=== PATIENT | male | born 1965 | race Caucasian/White ===

== ENCOUNTER 2022-05-21 08:05 | Outpatient (CLI) | payer OTHER, SELFPAY ==
[2022-05-21 15:15] LABS: Chloride* 100 mmol/L (96-114); Potassium* 4.7 mmol/L (3.6-5.1); Sodium* 139 mmol/L (135-149)
[2022-05-21 15:17] LABS: Creatinine* 1.1 mg/dL (0.5-1.5); Estimated Glomerular Filt Rate 79 ml/min
[2022-05-21 15:18] LABS: Blood Urea Nitrogen* 17 mg/dL (7-30); Calcium* 10.3 mg/dL (8.4-10.6); Carbon Dioxide* 31 mmol/L (20-32); Glucose* 95 mg/dL (60-115)
== END 2022-05-21 08:06 | disposition home or self-care (01) ==
LOC: LKVREF 08:06
PROVIDERS: PCP Family Medicine; Visit Provider Family Medicine
DX: I10 Essential (primary) hypertension (principal); Z01.818 Encounter for other preprocedural examination
CPT/HCPCS: 80048

== ENCOUNTER 2022-06-04 10:16 | Outpatient (CLI) | payer OTHER, SELFPAY ==
--- NOTE | 2022-06-04 11:36 | W.ANESCHARGE ---
Anesthesia Charges Start Date/Time Anesthesia Start Date: 06/04/22 Anesthesia Start Time: 11:03 Stop Date/Time Anesthesia Stop Date: 06/04/22 Anesthesia Stop Time: 11:32 Summary Emergency: No
--- NOTE | 2022-06-04 11:47 | W.ANESCHARGE ---
Anesthesia Charges Start Date/Time Anesthesia Start Date: 06/04/22 Anesthesia Start Time: 11:03 Stop Date/Time Anesthesia Stop Date: 06/04/22 Anesthesia Stop Time: 11:32 Summary Emergency: No
== END 2022-06-04 10:17 | disposition home or self-care (01) ==
LOC: OP CLINIC 10:17
PROVIDERS: PCP Family Medicine; Visit Provider Surgery
DX: Z12.11 Encounter for screening for malignant neoplasm of colon (principal); Z86.010 Personal history of colon polyps
CPT/HCPCS: 00811; 00812; 45378; J2704

== ENCOUNTER 2023-05-16 13:00 | Outpatient (RCR) | payer OTHER, SELFPAY | END 2023-07-30 14:09 | disposition home or self-care (01) | PROVIDERS: PCP Family Medicine; Visit Provider Family Medicine | DX: M79.2 Neuralgia and neuritis, unspecified (principal); Z51.89 Encounter for other specified aftercare | CPT/HCPCS: 80048; 80061; 84153; 97012; 97110; 97140; 97162; 97530 ==

== ENCOUNTER 2023-11-08 08:02 | Outpatient (CLI) | payer OTHER, SELFPAY ==
--- OUTSIDE RECORDS SUMMARY | 2023-11-08 08:05 | XMS_ITS | Patient Health Record ---
Author Name Unknown Organization [facility] Address [address] [place] [address] Care Team Providers Care Knifeman Name Role Phone PCP, Does Not Have a Primary Care Provider Unava ilable ALLERGIES No Known Allergies REASON FOR REFERRAL No Information MEDICATIONS Medication SIG (Take, Route, Frequency, Duration) Notes Start Date End Date Status Atorvastatin Calcium Active Losartan Potassium-HCTZ Active Albuterol Sulfate HFA 108 (90 Base) MCG/ACT 1-2 puffs as needed for shortness of breath and/or wheezing Inhalation every 4-6 hrs for 7 days 09/18/2022 Active oxyCODONE-Acetaminophen Active SOCIAL HISTORY Sex Assigned At : Social History Observation Description Sex Assigned At Unknown PLAN OF TREATMENT No Information Insurance Providers Payer Name Payer Address Payer Phone Subscriber Number Group Number Insured Name Patient Relationship to Insured Coverage Start Date Coverage End Date [employer] [address] [place] [address] [id number] DORIS SCHULTZ Self - patient is the insured MEDICAL (GENERAL) HISTORY Medical History History ICD Code hyperlipidemia HTN
--- OUTSIDE RECORDS SUMMARY | 2023-11-08 08:05 | XMS_ITS | Continuity of Care Document ---
Author Name Unknown Organization [facility] Address [address] [place] [address] Phone Care Team Providers Care Sap Basis Architect Name Role Phone Jose Neely MD Unavailable Unavailable Allergies, Adverse Reactions, Alerts Substance Reaction Status Criticality sumatriptan Active No Information methocarbamol Active No Information gabapentin Active No Information tramadol Active No Information Medications Medication Instructions Dosage Effective Dates (start - stop) Status Comments LOSARTAN-HYDROCHLOROTHI AZIDE (unknown strength) Not Available - Active PERCOCET (unknown strength) Not Available - Active ATORVASTATIN CALCIUM (unknown strength) Not Available - Active VITAMIN D3 (unknown strength) Not Available - Active Procedures Procedure Date Office/Outpatient Visit,New, Mod 2022 Physician Telephone Evaluation 5-10 Min Physician Telephone Evaluation 5-10 Min Office/Outpatient Visit,Est, Low 2017 Postop Followup Visit Pa Assist Lumbar Spine Fusion, Posterola teral Remove Lumbar Spine Lamina, 1 Seg Pa Assist Insert Spine Fixation, Posteri or Lumbar Spine Fusion, Posterolateral Remove Lumbar Spine Lamina, 1 Seg Insert Spine Fixation, Posterior 2017 Office/Outpatient Visit,Est, Mod 2017 Office/Outpatient Visit,Est, Mod 2017 Office/Outpatient Visit,Est, Mod 2017 Office/Outpatient Visit,New, Mod 2016 Advance Directives Directive Yes / No Effective Date File Name No Information Encounters Encounter Description Practice Location Reason(s) For Visit Diagnoses Date Provider Providers Copied on Encounter [facility], [address], [place], [place], [id number], [place] tel:[phone] [facility] [place] No Information [address] [facility], [address] [place] [address], [address], [facility] [place], [id number] , [place]. tel:[phone] Office/Outpat ient Visit,New, Mod [facility], [address], [place], [place], [id number], [place] tel:[phone] [facility] [place] Spinal stenosis, cervical region Sep- [address] Mari[address]ña[address] [facility], [address], [place], [address], [place]. [phone] Referring Provider: Asif Browne, [facility] [address] [place], [address]. tel:[phone] Physician Telephone Evaluation 5-10 Min [facility], [address], [place], [id number], [place] tel:[phone] [facility] - [place] No Information [address]ña[address] [facility] [place], [address], [place], [address], [place]. [phone] Referring Provider: Asif Browne, [facility] [address] [place], [address]. tel:[phone] Physician Telephone Evaluation 5-10 Min [facility], [address], [place], [place], [id number], [place] tel:[phone] [facility] - [facility] No Information [address] Peña[address] [facility] [place], [address], [place], [address], [place]. tel:[phone] Referring Provider: Asif Browne, [facility] [address] [place], [address]. tel:[phone] Office/Outpat ient Visit,Est, Low [facility], [address], [place], [id number], [place] tel:[phone] [facility] [place] Arthrodesis status [address] [facility] [place], [address], [facility] [place], [address], [place]. tel: [phone] Referring Provider: Asif Browne, [facility] [address] [place], [address]. tel:[phone] [facility], [address], [place], [place], [id number], [place] tel:[phone] [facility] Arthrodesis status [address] Peña[address] [facility] [place], [address] [place] [address] [address], [facility] [place], [address], [place]. tel: [phone] Referring Provider: Asif Browne, [facility] [address] [place], [address]. tel:[phone] [facility], [address], [place], [id number], [place] tel:[phone] [facility] Arthrodesis status [address] [facility] [place], [address] [place] [address], [address], [facility] [place], [id number] , [place]. tel: [phone] [facility], [address], [place], [id number], [place] tel:[phone] [facility] No Information [address] [facility] [place], [address], [facility] [place], [id number] , [place]. tel:[phone] Referring Provider: Asif Browne, [facility] [address] [place], [address]. tel:[phone] [facility], [address], [place], [id number], [place] tel:[phone] [facility] No Information [address]ña[address] [facility], [address], [place], [address], [place]. tel:[phone] Referring Provider: Asif Browne, [facility] [address] [place], [address]. tel:[phone] Office/Outpat ient Visit,Est, Mod [facility], [address], [place], [id number], [place] tel:[phone] [facility] Spondylolisthe sis, lumbar region Feb-2 7-201 8 Mariama Peña. [facility], [address], [place], [address], [place]. tel:[phone] Referring Provider: Asif Browne, [facility] [address] [place], [address]. tel:[phone] Office/Outpat ient Visit,Est, Mod [facility], [address], [place], [id number], [place] tel:[phone] [facility] Spinal stenosis of lumbosacral regionSpondylo listhesis, lumbar region Oct- 0 8 Tommy Lowery. [facility], [address], [facility], [id number] , [place]. tel:[phone] Referring Provider: Asif Browne, [facility] [address] [place], [address]. tel:[phone] Office/Outpat ient Visit,Est, Mod [facility], [address], [place], [address], [place] tel:[phone] [facility] Spondylolisthe sis, lumbar regionSpinal stenosis of lumbosacral region 8 Tommy Lowery. [facility], [address], [facility] [place], [id number] , [place]. tel:[phone] Referring Provider: Asif Browne, [facility] [address] [place], [address]. tel:[phone] Office/Outpat ient Visit,New, Mod [facility], [address], [place], [id number], [place] tel:[phone] [facility] [place] Spondylolisthe sis, lumbar regionSpinal stenosis, lumbar region [address] [facility], [address], [place], [address] , [place]. tel:[phone] Referring Provider: Asif Browne, [address], [address]. tel:[phone] Family History Family Member Type Diagnosis Age At Onset No Information Payers Payer name Insurance type Covered green party ID Shoaib dominguez(sailaja Isbell CI [id number] Social History Type Description Quantity Date Captured Comments Sex Male Smoking Status No Information Chief Complaint And Reason For Visit No Information Reason For Referral Reason For Referral No Information History Of Present Illness Encounter Date Complaint History Of Prese nt Illness No Information Functional Status Date Functional Assessmen t No Information Instructions Date Instruction Additional Infor heath Weight management: I nstructed to return to General Practitioner timeframe: 1 Month. Related to Overweight Weight Management Education Rela shira to Overweight Assessments Type Assessment Date No Information Patient Care Teams Name Effective Dates (start - stop) Status Members No Information
--- OUTSIDE RECORDS SUMMARY | 2023-11-08 08:05 | XMS_ITS | Clinical Summary ---
Author Name Unknown Organization [facility] Address [place], [place] [address] Care Team Providers Care Plate Driller Name Role Phone Asif Andersen MD Primary Care Provider [phone] Allergies Active Allergy Reactions Criticality Noted Date Comments Gabapentin Hives 03/19/2023 Hives and hand swelling. Sumatriptan Rash Medium 02/24/2018 Skin sensitivity Tramadol Vomiting High 02/24/2018 Severe vomiting Medications Medication Sig Dispensed Refills Start Date End Date Status atorvastatin (LIPITOR) 10 mg tablet Take 10 mg by mouth once every other day. 0 Active cholecalciferol (VITAMIN D3) 2,000 unit capsule Take 2,000 Units by mouth once daily. 0 Active oxyCODONE (ROXICODONE) 5 mg immediate release tabletIndications:S/P lumbar fusion Take 1-2 tablets by mouth every 4 hours if needed for Pain. 70 tablet 0 02/26/2018 Active losartan-hydrochlorot hiazide (HYZAAR) 100-25 mg tablet Take 1 Tablet by mouth once daily. 0 12/26/2022 Active Active Problems Problem Noted Date Diagnosed Date DDD (degenerative disc disease), cervical 2022 Overview: March 2023: Rayus C6-7 [place] epidural steroid injection without lidocaine injected. Spondylolisthesis of lumbar region 02/25/2018 Spinal stenosis of lumbar re gion without neurogenic claudication 02/25/2018 Hypertension 02/25/2018 Hypercholesteremia 02/25/2018 Immunizations Name Administration Dates Next Due Influenza, IIV3 (Age >=3 years) 06/30/2021 Influenza, IIV4 07/14/2018,06/13/2017 Influenza, IIV4 (=>6mos) MDV 07/18/2019 Influenza,CCIIV4 PRESERV FREE 06/13/2022, 020 Social History Tobacco Use Types Packs/Day Years Used Date Smoking Tobacco: Never Smokeless Tobacco: Never Alcohol Use Standard Drinks/Week Comments Yes 0 (1 standard drink = 0.6 oz pur e alcohol) 4 per month Social Connections Answer Date Recorded Frequency of Communication with Friends and Fami ly Not on file 03/19/2023 Sex and Gender Information Value Date Recorded Sex Assigned at Not on file Gender Identity Not on file Sexual Orientation Not on file Obstetrics History Last Filed Vital Signs Vital Sign Reading Time Taken Comments Blood Pressure 135/84 04/30/2023 12:55 PM CDT Pulse 74 04/30/2023 12:55 PM CDT Temperature 36.3 ??C (97.3 ??F) 02/27/2018 7:40 AM CD T Respiratory Rate 18 02/27/2018 7:40 AM CDT Oxygen Saturation 96% 04/30/2023 12:55 PM CDT Inhaled Oxygen Concentration - - Weight 99.1 kg (218 lb 6.4 oz) 04/30/2023 12:55 PM CDT Height 182.9 cm (6') 02/25/2018 8:47 AM CDT Body Mass Index 29.62 02/25/2018 8:47 AM CDT Plan of Treatment Health Maintenance Due Date Last Done Comments Tdap 1978 Depression screening for age 12+ 1979 HIV for age 15-65 1982 BMI (ht and wt on same day) for age 18+ 1985 Hepatitis C screening for age 18-79 1985 Tetanus booster 1987 Colonoscopy through age 75 01/15/2012 Lipids for age 45-75 01/15/2012 Zoster (shingles) series for age 50+ (1 of 2) 2017 COVID-19 vaccine series ( season) 2023 01/04/2022, 08/25/2021, 12/31/2020, Additional history exists Influenza for age 50-64 05/24/2023 06/13/20 22, 06/30/2021, 06/13/2020, Additional history exists Pneumococcal series for age 6-64 Aged Out No longer eligible based on patient's age to complete this topic Medical Devices Implanted Type Area Aircraft Maintenance Manager Device Identifier Shelf Expiration Date Model / Serial / Lot Bone 30cc Allosource Chips Canclls - [id number] Implanted:Qty : 1 on 02/25/2018 by Casey Leslie MD at [facility] Bone Implants Lumbar Vertebrae Allosource 04/19/2022 [id number] # / / [id number] Set Screw Lmbr Ant 5.5mm Solera Break Off - [id number] Implanted:Qty : 4 on 02/25/2018 by Casey Leslie MD at [facility] Lumbar Vertebrae Medtronic [facility] [id number]# / / Screw Lmbr Post 6.5x45mm Solera 5.5/6 Va Cocr - [id number] Implanted:Qty : 2 on 02/25/2018 by Casey Leslie MD at [facility] Lumbar Vertebrae Medtronic Spine/Ortho [id number] 545# / / Screw Lmbr Post 6.5x50mm Solera 5.5/6 Va Cocr - [id number] Implanted:Qty : 2 on 02/25/2018 by Casey Leslie MD at [facility] Lumbar Vertebrae Medtronic Spine/Ortho [id number] 550# / / Gentry Lmbr 40x5.5mm Solera 5.5/6cvd Co Cr - [id number] Implanted:Qty : 2 on 02/25/2018 by Casey Leslie MD at [facility] Lumbar Vertebrae Medtronic Spine/Ortho [id number] 40# / / Bone 15cc Allosource Crushed Canclls - [id number] Implanted:Qty : 1 on 02/25/2018 by Casey Leslie MD at [facility] Lumbar Vertebrae Allosource 10/08/2022 [id number] # / / [id number] Advance Directives Latest Code Status on File Code Status Date Activated Date Inactivated Comments Full Code 02/25/2018 3:49 PM 02/27/2018 11:57 AM Care Teams Plate Driller Relationship Specialty Start Date End Date Asif Andersen MD [address] [place] [address] PCP - General Family Practice 10/03/17
--- NOTE | 2023-11-08 08:15 | MR_ITS ---
[address] [address] Phone:[phone] Fax:[phone] Referring Physician Information: Ling Cook C.N.P. [address] [address] Phone:[phone] Fax:[phone] Patient:?Jose De Jesus Reynoso D.O.B:?1965 Sex:?Male Phone:?[phone] [facility] MRN:?[id number] Exam Date:?11/08/2023 EXAM: MR LUMBAR SPINE WITHOUT CONTRAST CLINICAL INFORMATION: Back pain with history of prior lumbar surgery. COMPARISON: MRI dated 04/25/2020. TECHNICAL INFORMATION: Multiplanar multisequence imaging in the lumbar spine. Contrast:?None. Sedation:?None. INTERPRETATION: Osseous structures/Alignment: Normal lumbar lordotic alignment. Modic type II endplate changes at L5-S1. Instrumented fusion at L4-5 with grade 1 spondylolisthesis. No osseous destructive lesion or fracture. Facet/SI joints: Mild facet hypertrophy/degenerative changes bilaterally at L3-4 and moderate on the left at L5-S1. Upper SI joints are unremarkable. Cord/conus: Normal signal intensity distal cord/conus medullaris. Normal conus termination. Extra-spinal findings: No abnormalities identified. L5-S1: Severe disc generation with bulge/osteophyte, mild left foraminal stenosis and no focal neural impingement. Patent central canal. L4-5: Posterior lateral instrumented fusion/decompression with patent central canal and foramina. L3-4: Moderate disc generation, 3 mm retrolisthesis with bulge asymmetric to the left with [id number] left and mild right subarticular recess stenosis, left L4 nerve encroachment. Overall mild central canal stenosis and mild left foraminal stenosis. L2-3: Normal disc height. No disc herniation, stenosis or focal neural impingement. L1-2: Mild disc generation, dorsal bulge with mild dural sac effacement and no stenosis or neural impingement. No lower thoracic disc herniation or neural impingement. CONCLUSION: 1. Mild central and moderate left greater than right L3-4 subarticular recess stenosis with left L4 nerve encroachment. 2. Severe L5-S1 disc degeneration with mild left foraminal stenosis. 3. Stable postoperative changes L4-5 with no recurrent stenosis or neural impingement. 4. No significant interval changes as compared with prior study. Electronically signed on 11/11/2023 8:42:00 AM by Sukumar Shaw M.D.
== END 2023-11-08 08:03 | disposition home or self-care (01) ==
LOC: MRI 08:03
PROVIDERS: PCP Family Medicine; Visit Provider Nurse Practitioner Family
DX: M96.1 Postlaminectomy syndrome, not elsewhere classified (principal); M51.37 Other intervertebral disc degeneration, lumbosacral region; M48.07 Spinal stenosis, lumbosacral region; M54.9 Dorsalgia, unspecified
CPT/HCPCS: 72148

== ENCOUNTER 2024-03-23 14:17 | Emergency (ER) | payer OTHER, SELFPAY ==
[2024-03-23] VITALS (27 sets, daily range): BP systolic 101–142; BP diastolic 63–96; PULSE 57–73; RESP 18; TEMP 36.1; O2SAT 92–100; BMI 29.6
--- NOTE | 2024-03-23 14:50 | ED.SYNCOPE ---
HPI - Syncope General Chief Complaint: Syncope/Fainted Stated Complaint: Syncopal Time Seen by Provider: 03/23/24 14:39 History of Present Illness HPI narrative: This 59-year-old male comes in for evaluation of his syncopal event that occurred prior to arrival. He was sitting at a restaurant when he began to feel lightheaded and after about 10 seconds or so he did have loss of consciousness. He leaned forward with his head down. Ambulance was contacted and he was still recovering at that time. His systolic blood pressure was measured at around 77 at that time. Upon arrival here he is feeling better except for being tired. His systolic blood pressure here is 124. The patient is on antihypertensive medicines but there is no new medicine or change of this medicine. He did not have any chest pain or shortness of breath. He did not notice any palpitations. He is currently finishing treatment for shingles. He denies having any fevers or other symptoms of infection. His significant other noted that he was very pale at the time of these events but now has good normal skin color. Related Data Home Medications ?Medication ?Instructions ?Recorded ?Confirmed cholecalciferol (vitamin D3) 50 50 mcg PO DAILY 05/21/22 03/17/24 mcg (2,000 unit) tablet oxycodone-acetaminophen 5 mg-325 tab PO Q8H PRN 05/21/22 03/17/24 mg tablet ondansetron 4 mg disintegrating mg PO 03/17/24 03/17/24 tablet Previous Rx's ?Medication ?Instructions ?Recorded atorvastatin 10 mg tablet 10 mg PO .Bedtime #90 tabs 05/03/23 losartan 100 1 tab PO DAILY #90 tabs 05/03/23 mg-hydrochlorothiazide 25 mg tablet cyclobenzaprine 10 mg tablet 10 mg PO TID PRN muscle spasm #90 02/20/24 tabs methylprednisolone 4 mg tablets in See Rx Instructions PO PER PKG DIR 03/17/24 a dose pack (Medrol (Robe)) #21 ea valacyclovir 1 gram tablet 1,000 mg PO Q8H 7 days #21 tabs 03/17/24 (Valtrex) Allergies Allergy/AdvReac Type Severity Reaction Status Date / Time gabapentin Allergy Severe Hives Verified 03/17/24 11:36 sumatriptan Allergy Severe Skin Verified 03/17/24 11:36 sensitivity tramadol Allergy Severe Emesis Verified 03/17/24 11:36 methocarbamol AdvReac Severe Migraine Verified 03/17/24 11:36 Review of Systems Status of ROS: Reports: 10 or more systems reviewed and unremarkable except as noted in History and below Narrative: Constitutional: No fevers, no weight gain or loss. Eyes: No discharge. No vision changes. HENT: No congestion, no sore throat, no ear pain. Cardiovascular: No chest pain, no palpitations. Respiratory: No shortness of breath, no wheezes, no cough. Gastrointestinal: No abdominal pain, no vomiting, no diarrhea. Genitourinary: No dysuria, no hematuria. Musculoskeletal: Normal range of motion. Skin: No rashes, no pruritis. Neurological: No weakness, sensory change, speech change. Syncopal event as described above. Endo/Heme/Allergies: No bruising or bleeding. No polydipsia. Pysch: no suicidality, no anxiety, no insomnia. All other systems reviewed and are negative. [facility] Medical History (Updated 03/23/24 @ 15:47 by Amadou Coy MD) Hyperlipidemia ?E78.5 - Hyperlipidemia, unspecified (ICD-10) Hypertension ?I10 - Essential (primary) hypertension (ICD-10) Prediabetes ?R73.03 - Prediabetes (ICD-10) Pain of right upper extremity ?M79.601 - Pain in right arm (ICD-10) Pain of left upper extremity ?M79.602 - Pain in left arm (ICD-10) Left knee pain ?M25.562 - Pain in left knee (ICD-10) Encounter for preoperative screening laboratory testing for severe acute respiratory syndrome coronavirus 2 (SARS-CoV-2) ?Z01.812 - Encounter for preprocedural laboratory examination (ICD-10) ?Z20.822 - Contact with and (suspected) exposure to covid-19 (ICD-10) Encounter for pre-operative examination ?Z01.818 - Encounter for other preprocedural examination (ICD-10) Surgical History (Updated 03/03/24 @ 09:43 by Agueda Coats MD) H/O neck surgery ?Z98.890 - Other specified postprocedural states (ICD-10) S/P laparoscopic cholecystectomy ?Z90.49 - Acquired absence of other specified parts of digestive tract (ICD-10) S/P knee surgery ?Z98.890 - Other specified postprocedural states (ICD-10) History of spinal fusion ?Z98.1 - Arthrodesis status (ICD-10) History of colonoscopy ?Z98.890 - Other specified postprocedural states (ICD-10) Social History (Updated 03/03/24 @ 09:44 by Agueda Coats MD) Narrative: Non-smoker, works as a general lithographic worker. Minimal alcohol use. Smoking Status: Never smoker Do you use any of these nicotine containing products: None How often do you have a drink containing alcohol: never How often do you have six or more drinks on one occasion: Never AUDIT-C Alcohol total score: 0 Non-prescribed substance use: denies use Little interest or pleasure in doing things: not at all Feeling down, depressed, or hopeless: not at all Exam Narrative: Exam Narrative: Constitutional: Well-developed, well-nourished, no acute distress. HEENT: Normocephalic, atraumatic. Neck: Normal range of motion. Nontender. Supple. Heart: Regular. No murmurs. Normal rate. Intact distal pulses. Lungs: Clear to auscultation. No chest discomfort. No wheezes, rhonchi, or rales. Abdomen: Normal bowel sounds. Nontender. No rebound tenderness. Genitalia: Deferred. Back: No midline tenderness. Normal range of motion. Extremities: Normal range of motion. No injury. Skin: Intact. No rash. Warm. No erythema or pallor. Neurologic: No altered sensation. No weakness. Alert and oriented. No facial asymmetry. Tongue is midline. Nvngen-gq-dnfw is normal. No pronator drift. Air Route Traffic Controller strength is equal bilaterally. Able to raise each leg from the bed. Psychiatric: No suicidality. No anxiety or depression. No insomnia. Nursing notes and vitals signs are reviewed. Const: Vital Signs, click to edit/add: Vital Signs - 24 hr 03/23/24 14:29 Temperature 97 F L Pulse Rate [Left P ulse Oximeter] 57 L Respiratory Rate 18 Blood Pressure [Le ft Upper Arm] 124/77 Pulse Oximetry 100 Oxygen Delivery Me thod Room Air Course Vital Signs Vital signs: Initial Vital Signs Temperature 97 F L 03/23/24 14:29 Temperature Source Temporal Artery Scan 03/23/24 14:29 Pulse Rate 57 L 03/23/24 14:29 Pulse Rhythm Regular 03/23/24 14:29 Pulse Strength 3+ Normal 03/23/24 14:29 Respiratory Rate 18 03/23/24 14:29 Blood Pressure 124/77 03/23/24 14:29 Blood Pressure Mean 92 03/23/24 14:29 Blood Pressure Position High-Fowlers 03/23/24 14:29 Pulse Oximetry 100 03/23/24 14:29 Oxygen Delivery Method Room Air 03/23/24 14:29 Vital Signs Temperature 97 F L 03/23/24 14:29 Pulse Rate 57 L 03/23/24 14:29 Respiratory Rate 18 03/23/24 14:29 Blood Pressure 124/77 03/23/24 14:29 Pulse Oximetry 100 03/23/24 14:29 Oxygen Delivery Method Room Air 03/23/24 14:29 Temperature 97 F L 03/23/24 14:29 Pulse Rate 57 L 03/23/24 14:29 Respiratory Rate 18 03/23/24 14:29 Blood Pressure 124/77 03/23/24 14:29 Pulse Oximetry 100 03/23/24 14:29 Oxygen Delivery Method Room Air 03/23/24 14:29 MDM - Syncope MDM Narrative Medical decision making narrative: This patient comes in reporting a syncopal event as described above. He arrives here with normal vital signs and has normal neurologic exam. EKG shows normal sinus rhythm and labs are acquired. These are in the process of being resulted. His hemoglobin, platelets, and white blood cell count are in normal range. His troponin also returns negative. He reports another episode where he felt lightheaded while in the room here. He is complaining of a headache in the left side of his forehead. He states that he does not normally get headaches there. More typically he has migraine-type headaches that affect the right side of his head. I did choose then to order CT imaging of his head and CT angiogram of head and neck. Results for these studies are pending at the end of my shift at which time care is transferred to Dr. Mcmanus. Lab Data Labs: Lab Results 03/23/24 03/23/24 Range/Units 14:50 15:14 WBC 10.80 (4.50-11.00) K/uL RBC 5.17 (4.30-5.90) m/uL Hgb 15.6 (13.5-17.5) gm/dL Hct 46.2 (37.0-53.0) % MCV 89 (80-100) fL MCH 30 (26-34) pg MCHC 34 (32-36) gm/dL RDW Coeff of Mehnaz 12.2 (11.5-15.5) % Plt Count 262 (140-440) K/uL Neut % (Auto) 70.2 (42.0-72.0) % Lymph % (Auto) 20.1 (20-44) % [place] % (Auto) 8.2 (0.0-11.0) % Eos % (Auto) 0.7 (0.0-7.0) % Baso % (Auto) 0.2 (0.0-3.0) % Neut # (Auto) 7.58 H (1.7-7.0) K/uL Lymph # (Auto) 2.17 (0.90-2.90) K/uL [place] # (Auto) 0.90 (0.00-0.90) K/UL Eos # (Auto) 0.08 (0.00-0.50) K/uL Baso # (Auto) 0.02 (0.00-0.30) K/uL Abs Immat Gran (auto) 0.06 (0.00-0.30) K/uL Imm/Tot Granulo (auto) 0.6 % POC Troponin I 0.00 L (0.01-0.04) ng/ml ECG Data Attestation: I personally reviewed and interpreted this ECG as follows: Interpretation: Normal sinus rhythm. Rate is 58 beats per minute. There are no ST or T-wave abnormalities. Discharge Plan Discharge Clinical Impression: Syncope Prescriptions: No Action cholecalciferol (vitamin D3) 50 mcg (2,000 unit) tablet 50 mcg PO DAILY oxycodone-acetaminophen 5-325 mg tablet PO Q8H PRN losartan-hydrochlorothiazide 100-25 mg tablet 1 tab PO DAILY Qty: 90 3RF atorvastatin 10 mg tablet 10 mg PO .Bedtime Qty: 90 3RF cyclobenzaprine 10 mg tablet 10 mg PO TID PRN (Reason: muscle spasm) Qty: 90 0RF ondansetron 4 mg tablet,disintegrating PO valacyclovir [Valtrex] 1 gram tablet 1,000 mg PO Q8H 7 Days Qty: 21 0RF methylprednisolone [Medrol (Robe)] 4 mg tablets,dose pack See Rx Instructions PO PER PKG DIR Qty: 21 0RF Rx Instructions: PO PER PKG DIR Follow Up/Referrals: Asif Andersen MD [Primary Care Provider] -
--- OUTSIDE RECORDS SUMMARY | 2024-03-23 15:04 | XMS_ITS | Continuity of Care Document ---
Author Organization [facility] Address [address] [place] [address] Phone Care Team Providers Care Tin Pourer Name Role Phone Jose Neely MD Unavailable [...] C, [address], [place], [place], [id number], [place] tel:[phone] [facility] No Information May- 3 Florinda Jose. [facility], [address] [place] [address], [address], [place], [place], [id number] , [place]. [phone] Office/Outpat ient Visit,New, Mod [facility], [address], [place], [place], [id number], [place] tel:[phone] [facility] Spinal stenosis, cervical region Sep- 3 Mariama Peña. [facility], [address] [place] [address] [address], [place], [address], [place]. [phone] Referring Provider: Asif Browne, [facility] [address] [place], [address]. tel:[phone] Physician Telephone Evaluation 5-10 Min [facility], [address], [place], [place], [id number], [place] tel:[phone] [facility] No Information 0 Mariama Peña. [facility], [address], [place], [address], [place]. tel:[phone] Referring Provider: Asif Browne, [facility] [address] [place], [address]. tel:[phone] Physician Telephone Evaluation 5-10 Min [facility], [address], [place], [place], [address], [place] tel:[phone] [facility] No Information 0 Mariama Peña. [facility], [address], [place], [address], [place]. tel:[phone] Referring Provider: Asif Browne, [facility] [address] [place], [address]. tel:[phone] Office/Outpat ient Visit,Est, Low [facility], [address], [place], [place], [id number], [place] tel:[phone] [facility] Arthrodesis status 8 Mariama Peña. [facility], [address], [place], [address], [place]. tel:[phone] Referring Provider: Asif Browne, [facility] [address] [place], [address]. tel:[phone] [facility], [address], [place], [id number], [place] tel:[phone] [facility] Arthrodesis status Mariama Peña. [facility], [address] [place] [address] [address], [place], [address], [place]. tel: [phone] Referring Provider: Asif Browne, [facility] [address] [place], [address]. tel:[phone] [facility], [address], [place], [address], [place] tel:[phone] [facility] Arthrodesis status 8 Gilmar Walker. [facility], [address] [place] [address], [address], [place], [place], [id number] , [place]. tel:[phone] [facility], [address], [place], [id number], [place] tel:[phone] [facility] No Information 8 Tommy Lowery. [facility], [address] [facility] [address], [place], [place], [address] , [place]. tel:[phone] Referring Provider: Asif Browne, [facility] [address] [place], [address]. tel:[phone] [facility], [address], [place], [place], [id number], [place] tel:[phone] [facility] No Information 8 Mariama Peña. [facility], [address], [place], [address], [place]. tel:[phone] Referring Provider: Asif Browne, [facility] [address] [place], [address]. tel:[phone] Office/Outpat ient Visit,Est, Mod [facility], [address], [place], [place], [address], [place] tel:[phone] [facility] Spondylolisthe sis, lumbar region Feb-2 7-201 8 Mariama Peña. [facility], [address], [place], [address], [place]. tel:[phone] Referring Provider: Asif Browne, [facility] [address] [place], [address]. tel:[phone] Office/Outpat ient Visit,Est, Mod [facility], [address], [place], [id number], [place] tel:[phone] [facility] Spinal stenosis of lumbosacral regionSpondylo listhesis, lumbar region Oct- 0201 8 Tommy Lowery. [facility], [address], [place], [place], [address] , [place]. tel:[phone] Referring Provider: Asif Browne, [facility] [address] [place], [address]. tel:[phone] Office/Outpat ient Visit,Est, Mod [facility], [address], [place], [id number], [place] tel:[phone] [facility] Spondylolisthe sis, lumbar regionSpinal stenosis of lumbosacral region 5201 8 Tommy Lowery. [facility], [address], [place], [place], [address] , [place]. tel:[phone] Referring Provider: Asif Browne, [facility] [address] [place], [address]. tel:[phone] Office/Outpat ient Visit,New, Mod [facility], [address], [place], [place], [address], [place] tel:[phone] [facility] Spondylolisthe sis, lumbar regionSpinal stenosis, lumbar region 7 Sanders Sebastián. [facility], [address], [place], [place], [address] , [place]. tel:[phone] Referring Provider: Asif Browne, [address], [address]. tel:[phone] Family History Family Member Type Diagnosis Age At Onset No Information Payers Payer name Insurance type Covered constitution party ID Shoaib dominguez(sailaja Isbell CI [id number] Social History Type Description Quantity Date Captured [...]
--- OUTSIDE RECORDS SUMMARY | 2024-03-23 15:04 | XMS_ITS | Clinical Summary ---
Author Organization [facility] Address [place], [place] [address] Care Team Providers Care Measurement And Sensing Technician Name Role Phone Asif Andersen MD Primary Care Provider [phone] Allergies Active Allergy Reactions Criticality Noted Date Comments Gabapentin Hives 03/19/2023 Hives and hand swelling. Sumatriptan Rash Medium 02/24/2018 Skin sensitivity Tramadol Vomiting High 02/24/2018 Severe vomiting Medications Medication Sig Dispensed Refills Start Date End Date Status atorvastatin (LIPITOR) 10 mg tablet Take 10 mg by mouth once every other day. Active cholecalciferol (VITAMIN D3) 2,000 unit capsule Take 2,000 Units by mouth once daily. Active oxyCODONE (ROXICODONE) 5 mg immediate release tabletIndications:S/P lumbar fusion Take 1-2 tablets by mouth every 4 hours if needed for Pain. 70 tablet 02/26/2018 Active losartan-hydrochlorot hiazide (HYZAAR) 100-25 mg tablet Take 1 Tablet by mouth once daily. 12/26/2022 Active Active Problems Problem Noted Date [...] (1 of 2) 2017 COVID-19 vaccine series (2022- season) 2023 01/04/2022, 08/25/2021, 12/31/2020, Additional history exists Influenza for age 50-64 05/24/2024 06/13/20 22, 06/30/2021, 06/13/2020, Additional history exists Pneumococcal series for age 6-64 Aged Out No longer eligible based on patient's age to complete this topic Medical Devices Implanted Type Area Game Show Host Device Identifier Shelf Expiration Date Model / Serial / Lot Bone 30cc Allosource Chips Canclls - [id number] Implanted:Qty : 1 on 02/25/2018 by Casey Leslie MD at [facility] Bone Implants Lumbar Vertebrae Allosource 04/19/2022 [id number] # / / [id number] Set Screw Lmbr Ant 5.5mm Solera Break Off - [id number] Implanted:Qty : 4 on 02/25/2018 by Casey Leslie MD at [facility] Lumbar Vertebrae Medtronic Spine/Ortho [id number]# / / Screw Lmbr Post 6.5x45mm Solera 5.5/6 Va Cocr - [id number] Implanted:Qty : 2 on 02/25/2018 by Casey Lelsie MD at [facility] Lumbar Vertebrae Medtronic Spine/Ortho [id number]# / / Screw Lmbr Post 6.5x50mm Solera 5.5/6 Va Cocr - [id number] Implanted:Qty : 2 on 02/25/2018 by Casey Leslie MD at [facility] Lumbar Vertebrae Medtronic Spine/Ortho [id number] 550# / / Gentry Lmbr 40x5.5mm Solera 5.5/6cvd Co Cr - [id number] Implanted:Qty : 2 on 02/25/2018 by Casey Leslie MD at [facility] Lumbar Vertebrae Medtronic Spine/Ortho [id number] 40# / / Bone 15cc Allosource Crushed Canclls - [id number] Implanted:Qty : 1 on 02/25/2018 by Casey Leslie MD at [facility] Lumbar Vertebrae Allosource 10/08/2022 [id number] # / / [id number] Advance Directives * Full Code (Latest Code Status on File) Date Activated Date Inactivated Comments 02/25/2018 3:49 PM 02/27/2018 11:57 AM Care Teams Measurement And Sensing Technician Relationship Specialty Start Date End Date Asif Andersen MD [address] [place] [address] PCP - General Family Practice 10/03/17
--- OUTSIDE RECORDS SUMMARY | 2024-03-23 15:04 | XMS_ITS | Patient Health Record ---
Author Organization [facility] Address [address] [place] [address] Care Team Providers Care Escrow Manager Name Role Phone PCP, Does Not Have [...] Insured Coverage Start Date Coverage End Date [employer] [address] [place] [address] [id number] DORIS SCHULTZ Self - patient is the insured MEDICAL (GENERAL) HISTORY Medical History History ICD Code hyperlipidemia HTN
[2024-03-23 15:27] LABS: Basophils Absolute Auto 0.02 K/uL (0.00-0.30); Basophils Percent Auto 0.2 % (0.0-3.0); Eosinophils Absolute Auto 0.08 K/uL (0.00-0.50); Eosinophils Percent Auto 0.7 % (0.0-7.0); Hematocrit 46.2 % (37.0-53.0); Hemoglobin* 15.6 gm/dL (13.5-17.5); Immature Granulocytes Abs Auto 0.06 K/uL (0.00-0.30); Immature Granulocytes Pct Auto 0.6 %; Lymphocytes Absolute Auto 2.17 K/uL (0.90-2.90); Lymphocytes Percent Auto 20.1 % (20-44); Mean Corpuscular HGB Conc 34 gm/dL (32-36); Mean Corpuscular Hemoglobin 30 pg (26-34); Mean Corpuscular Volume 89 fL (80-100); Monocytes Percent Auto 8.2 % (0.0-11.0); Neutrophils Absolute Auto 7.58 K/uL (1.7-7.0); Neutrophils Percent Auto 70.2 % (42.0-72.0); Platelet Count* 262 K/uL (140-440); RDW Coefficient of Variation % 12.2 % (11.5-15.5); Red Blood Count 5.17 m/uL (4.30-5.90)
[2024-03-23 15:32] LABS: Slide Review Reflex No
[2024-03-23 15:39] LABS: Chloride* 98 mmol/L (96-114); Potassium* 3.5 mmol/L (3.6-5.1); Sodium* 132 mmol/L (135-149)
--- NOTE | 2024-03-23 15:40 | CRLHL7_ITS ---
For Patients: As a result of the Century Cures Act, medical imaging exams and procedure reports are released immediately into your electronic medical record. You may view this report before your referring provider. If you have questions, please contact your health care provider. INDICATION: Headache, syncope TECHNIQUE: Noncontrast axial CT of the head. Coronal and sagittal reformats. Bone and soft tissue algorithms. COMPARISON: No relevant comparison studies available at this institution. FINDINGS: The ventricles and cortical sulci are normal in configuration. No midline shift or mass effect, hydrocephalus or herniation. Preserved rodríguez-white matter differentiation. Unremarkable white matter attenuation. Major intracranial vasculature is unremarkable for technique. Midline structures are unremarkable. Calvarium appears grossly intact. Layering frothy secretions throughout the right sphenoid sinus. Mild lobulated mucosal thickening at the inferior maxillary sinuses. Clear mastoid air cells. Unremarkable orbits. IMPRESSION: 1. No CT evidence of acute intracranial abnormality. 2. Layering frothy secretions within the right sphenoid sinus. Consider correlation for sinusitis. Please note that all CT scans at this facility use dose modulation, iterative reconstruction, and/or weight-based dosing when appropriate to reduce radiation dose to as low as reasonably achievable. Dictated by Ruby Francis MD @ 03/23/2024 4:52:07 PM (Electronically Signed)
[2024-03-23 15:41] LABS: Est. Creatinine Clearance* 89.46; Estimated Glomerular Filt Rate 88 ml/min
[2024-03-23 15:42] LABS: Anion Gap 7 mEq/L (7-15); Blood Urea Nitrogen* 22 mg/dL (7-30); Calcium* 9.1 mg/dL (8.4-10.6); Carbon Dioxide* 27 mmol/L (20-32); Glucose* 125 mg/dL (60-115)
--- NOTE | 2024-03-23 15:42 | CRLHL7_ITS ---
For Patients: As a result of the Century Cures Act, medical imaging exams and procedure reports are released immediately into your electronic medical record. You may view this report before your referring provider. If you have questions, please contact your health care provider. CLINICAL HISTORY: Headaches; syncope. TECHNIQUE: Standard helical CT image acquisition through the neck was performed after intravenous contrast bolus enhancement. 3D and MIP reconstructions were performed at a separate workstation and permanently archived. COMPARISON: None available. FINDINGS: The origins of the great vessels from the aortic arch are patent. The common carotid arteries are patent. No significant luminal stenoses of the proximal ICAs by NASCET criteria. The more distal cervical segments of the ICAs are patent. The origins and cervical segments of the vertebral arteries are patent. IMPRESSION: Patent cervical arterial vasculature without hemodynamically significant luminal stenosis. Please note that all CT scans at this facility use dose modulation, iterative reconstruction, and/or weight-based dosing when appropriate to reduce radiation dose to as low as reasonably achievable. Dictated by Mateo Harrington MD @ 03/24/2024 11:27:08 AM (Electronically Signed)
--- NOTE | 2024-03-23 15:42 | CRLHL7_ITS ---
For Patients: As a result of the Century Cures Act, medical imaging exams and procedure reports are released immediately into your electronic medical record. You may view this report before your referring provider. If you have questions, please contact your health care provider. CLINICAL HISTORY: Headaches; syncope. TECHNIQUE: Standard helical CT image acquisition through the head following the administration of intravenous contrast was performed. 3D and MIP reconstructions were performed at a separate workstation and permanently archived. COMPARISON: None available. FINDINGS: No intracranial proximal large vessel occlusion or flow-limiting luminal stenosis. No evidence of cerebral aneurysm. No findings to suggest an arterial-venous shunting lesion. The major dural venous sinuses and deep venous system are patent. IMPRESSION: No intracranial proximal large vessel occlusion, flow-limiting luminal stenosis, or cerebral aneurysm. Please note that all CT scans at this facility use dose modulation, iterative reconstruction, and/or weight-based dosing when appropriate to reduce radiation dose to as low as reasonably achievable. Dictated by Mateo Harrington MD @ 03/24/2024 11:32:47 AM (Electronically Signed)
[2024-03-23 17:20] LABS: Troponin, Point-of-Care* 0.01 ng/ml (0.01-0.04)
[2024-03-23] MEDS: 0.9 % SODIUM CHLORIDE 500 ML 500 ML 1000 ML IV (17:28)
== END 2024-03-23 17:50 | disposition home or self-care (01) ==
PROVIDERS: Family Medicine; Emergency Provider Emergency Medicine Emergency Medical Services; PCP Family Medicine
DX: R55 Syncope and collapse (principal)
CPT/HCPCS: 36415; 70450; 70496; 70498; 80048; 84484; 85025; 93005; 99284; 99285; J7030; Q9967

== ENCOUNTER 2024-08-17 12:17 | Outpatient (CLI) | payer OTHER, SELFPAY ==
--- OUTSIDE RECORDS SUMMARY | 2024-08-17 12:22 | XMS_ITS | Continuity of Care Document ---
Author Organization [facility] Address [address] [place] [address] Phone Care Team Providers Care [employer] Name Role Phone Jose Neely MD Unavailable [...] C, [address], [place], [place], [id number], [place] tel:[phone] [facility] [place] No Information May- 3 Florinda Jose. [facility], [address] [place] [address], [address], [place], [place], [id number] , [place]. [phone] Office/Outpat ient Visit,New, Mod [facility], [address], [place], [place], [id number], [place] tel:[phone] [facility] [place] Spinal stenosis, cervical region Sep- 3 Mariama Peña. [facility], [address] [place] [address] [address], [place], [address], [place]. [phone] Referring Provider: Asif Browne, [facility] [address] [place], [address]. tel:[phone] Physician Telephone Evaluation 5-10 Min [facility], [address], [place], [id number], [place] tel:[phone] [facility] - [place] No Information 0 Mariama Peña. [facility], [address], [place], [address], [place]. tel:[phone] Referring Provider: Asif Browne, [facility] [address] [place], [address]. tel:[phone] Physician Telephone Evaluation 5-10 Min [facility], [address], [place], [id number], [place] tel:[phone] [facility] - [facility] No Information 0 Mariama Peña. [facility], [address], [place], [address], [place]. tel:[phone] Referring Provider: Asif Browne, [facility] [address] [place], [address]. tel:[phone] Office/Outpat ient Visit,Est, Low [facility], [address], [place], [place], [id number], [place] tel:[phone] [facility] [place] Arthrodesis status 8 Mariama Peña. [facility], [address], [place], [address], [place]. tel:[phone] Referring Provider: Asif Browne, [facility] [address] [place], [address]. tel:[phone] [facility], [address], [place], [id number], [place] tel:[phone] [facility] [place] Arthrodesis status Mariama Peña. [facility], [address] [place] [address] [address], [place], [address], [place]. tel: [phone] Referring Provider: Asif Browne, [facility] [address] [place], [address]. tel:[phone] [facility], [address], [place], [id number], [place] tel:[phone] [facility] - [facility] Arthrodesis status 8 Gilmar Walker. [facility], [address] [place] [address], [address], [place], [place], [id number] , [place]. tel:[phone] [facility], [address], [place], [id number], [place] tel:[phone] [facility] No Information 8 Tommy Lowery. [facility], [address] [facility] [address], [place], [place], [id number] , [place]. tel:[phone] Referring Provider: Asif Browne, [facility] [address] [place], [address]. tel:[phone] [facility], [address], [place], [id number], [place] tel:[phone] [facility] No Information 8 Mariama Peña. [facility], [address], [place], [address], [place]. tel:[phone] Referring Provider: Asif Browne, [facility] [address] [place], [address]. tel:[phone] Office/Outpat ient Visit,Est, Mod [facility], [address], [place], [id number], [place] tel:[phone] [facility] Spondylolisthe sis, lumbar region Feb-2 7-201 8 Mariama Peña. [facility], [address], [place], [address], [place]. tel:[phone] Referring Provider: Asif Browne, [facility] [address] [place], [address]. tel:[phone] Office/Outpat ient Visit,Est, Mod [facility], [address], [place], [id number], [place] tel:[phone] [facility] Spinal stenosis of lumbosacral regionSpondylo listhesis, lumbar region Oct- 0201 8 Tommy Lowery. [facility], [address], [place], [place], [id number] , [place]. tel:[phone] Referring Provider: Asif Browne, [facility] [address] [place], [address]. tel:[phone] Office/Outpat ient Visit,Est, Mod [facility], [address], [place], [id number], [place] tel:[phone] [facility] Spondylolisthe sis, lumbar regionSpinal stenosis of lumbosacral region 5201 8 Tommy Lowery. [facility], [address], [place], [place], [id number] , [place]. tel:[phone] Referring Provider: Asif Browne, [facility] [address] [place], [address]. tel:[phone] Office/Outpat ient Visit,New, Mod [facility], [address], [place], [id number], [place] tel:[phone] [facility] [place] Spondylolisthe sis, lumbar regionSpinal stenosis, lumbar region 7 Sanders Sebastián. [facility], [address], [place], [place], [id number] , [place]. tel:[phone] Referring Provider: Asif Browne, [address], [address]. tel:[phone] Family History Family Member Type Diagnosis Age At Onset No Information Payers Payer name Insurance type Covered constitution party ID Shoaib dominguez(sailaja Isbell [id number] Social History Type Description Quantity Date Captured [...]
--- OUTSIDE RECORDS SUMMARY | 2024-08-17 12:22 | XMS_ITS | Continuity of Care Document ---
Author Organization [facility] angelika Address [address] [place] [address] Phone Care Team Providers Care Information Operator Name Role Phone Joyce JUNAID Ling Unavailable Unavailable Allergies, Adverse Reactions, Alerts Substance Reaction Status Criticality topiramate Active No Information gabapentin HivesHivesHives Active No Informati on codeine vomitingmigrainesnausea Active No I nformation Medications Medication Instructions Dosage Effective Dates (start - stop) Status Comments ondansetron 4 mg disintegrating tablet take 1 tablet by oral route every [address] on top of the tongue where they will dissolve, then swallow for nausea - Active Percocet 5 mg-325 mg tablet take 1 tab every 6 hours as needed, max 3/day for chronic pain - Active may fill today; atorvastatin 10 mg tablet take 1 tablet by oral route every day 10 MG - Active losartan 100 mg-hydrochlorothiaz enrico 12.5 mg tablet take 1 tablet by oral route every day 1.00 tablet - Active Vitamin D3 50 mcg (2,000 unit) capsule - Active Percocet 5 mg-325 mg tablet take 1 tab every 6 hours as needed, max 3/day for chronic pain - No Longer Active may fill today; ondansetron 4 mg disintegrating tablet take 1 tablet by oral route every [address] on top of the tongue where they will dissolve, then swallow for nausea - No Longer Active Procedures Procedure Date OFFICE/OUTPATIENT VISIT, EST Drug Urine Toxology With Chromatography OFFICE VISIT, EST TELEMEDICINE OFFICE VISIT, EST TELEMEDICINE OFFICE/OUTPATIENT VISIT, EST Drug Urine Toxology With Chromatography Drug test def 8-14 classes OFFICE VISIT, EST TELEMEDICINE OFFICE VISIT, EST TELEMEDICINE OFFICE/OUTPATIENT VISIT, EST OFFICE VISIT, EST TELEMEDICINE OFFICE VISIT, EST TELEMEDICINE INJ FORAMEN EPIDURAL L/S LEFT INJ FORAMEN EPIDURAL ADD-ON PT EVAL MOD COMPLEX 30 MIN THERAPEUTIC EXERCISES OFFICE/OUTPATIENT VISIT, EST Drug Urine Toxology With Chromatography Drug test def 8-14 classes OFFICE VISIT, EST TELEMEDICINE OFFICE VISIT, EST TELEMEDICINE OFFICE VISIT, EST TELEMEDICINE Drug Urine Toxology With Chromatography Drug test def 8-14 classes OFFICE/OUTPATIENT VISIT, EST OFFICE VISIT, EST TELEMEDICINE OFFICE VISIT, EST TELEMEDICINE OFFICE VISIT, EST TELEMEDICINE OFFICE/OUTPATIENT VISIT, EST Foll-up eval q3mo opiod tx OFFICE/OUTPATIENT VISIT, EST Foll-up eval q3mo opiod tx OFFICE VISIT, EST TELEMEDICINE Foll-up eval q3mo opiod tx OFFICE VISIT, EST TELEMEDICINE Drug Urine Toxology With Chromatography Drug test def 8-14 classes Drug Urine Toxology With Chromatography Drug test def 8-14 classes No Charge For Visit Per Prov Foll-up eval q3mo opiod tx OFFICE VISIT, EST TELEMEDICINE Foll-up eval q3mo opiod tx Substance Interv 15-30mn OFFICE/OUTPATIENT VISIT, EST Drug Urine Toxology With Chromatography Drug test def 15-21 classes Foll-up eval q3mo opiod tx OFFICE VISIT, EST TELEMEDICINE Foll-up eval q3mo opiod tx OFFICE VISIT, EST TELEMEDICINE Foll-up eval q3mo opiod tx OFFICE VISIT, EST TELEMEDICINE Drug Urine Toxology With Chromatography Drug test def 8-14 classes Foll-up eval q3mo opiod tx OFFICE/OUTPATIENT VISIT, EST Foll-up eval q3mo opiod tx OFFICE VISIT, EST TELEMEDICINE Foll-up eval q3mo opiod tx OFFICE VISIT, EST TELEMEDICINE Foll-up eval q3mo opiod tx OFFICE VISIT, EST TELEMEDICINE Drug Urine Toxology With Chromatography Drug test def 8-14 classes Foll-up eval q3mo opiod tx OFFICE/OUTPATIENT VISIT, EST Foll-up eval q3mo opiod tx OFFICE VISIT, EST TELEMEDICINE Foll-up eval q3mo opiod tx OFFICE VISIT, EST TELEMEDICINE Foll-up eval q3mo opiod tx OFFICE VISIT, EST TELEMEDICINE Drug Urine Toxology With Chromatography Drug test def 8-14 classes PT-FOCUSED HLTH RISK ASSMT Foll-up eval q3mo opiod tx OFFICE/OUTPATIENT VISIT, EST OFFICE VISIT, EST TELEMEDICINE Foll-up eval q3mo opiod tx Foll-up eval q3mo opiod tx OFFICE VISIT, EST TELEMEDICINE Foll-up eval q3mo opiod tx OFFICE VISIT, EST TELEMEDICINE Drug Urine Toxology With Chromatography Drug test def 8-14 classes Foll-up eval q3mo opiod tx OFFICE/OUTPATIENT VISIT, EST Foll-up eval q3mo opiod tx OFFICE VISIT, EST TELEMEDICINE Foll-up eval q3mo opiod tx OFFICE VISIT, EST TELEMEDICINE Foll-up eval q3mo opiod tx OFFICE VISIT, EST TELEMEDICINE SCS Lead Pull Satellite SCS Mid Trial Satellite IMPLANT NEUROELECTRODES ASC IMPLANT NEUROELECTRODES ASC ANALYZE NEUROSTIM, COMPLEX Foll-up eval q3mo opiod tx OFFICE VISIT, EST TELEMEDICINE Foll-up eval q3mo opiod tx OFFICE/OUTPATIENT VISIT, EST Telehealth Foll-up eval q3mo opiod tx OFFICE VISIT, EST TELEMEDICINE Foll-up eval q3mo opiod tx OFFICE VISIT, EST TELEMEDICINE Drug Urine Toxology With Chromatography Foll-up eval q3mo opiod tx OFFICE VISIT, EST TELEMEDICINE Foll-up eval q3mo opiod tx OFFICE VISIT, EST TELEMEDICINE Psych Dx Eval DAST 15-30 MIN OFFICE/OUTPATIENT VISIT, NEW Results Test Name Date and Time Measure Units Reference Range Abnormal Flag Status Comments Panel Description: URINE DRUG SCREEN Preliminar y Image UDT 1 AMPHETAMINE 01:47:00 -104 (Negativ e) ng/mL 0 Preliminary Performed by:[facility] (1) BARBITURATES 01:47:00 -104 (Negativ e) ng/mL 0 Preliminary Performed by:[facility] (1) COCAINE 01:47:00 -102 (Negativ e) ng/mL 0 Preliminary Performed by:[facility] (1) METHADONE 01:47:00 -100 (Negativ e) ng/mL 0 Preliminary Performed by:[facility] (1) OPIATES 01:47:00 -66 (Negativ e) ng/mL 0 Preliminary Performed by:[facility] (1) BENZODIAZEPINES 01:47:00 -91 (Negativ e) ng/mL 0 Preliminary Performed by:[facility] () PHENCYCLIDINE - PCP 01:47:00 -104.00 (Negativ e) ng/mL 0.00 Preliminary Performed by:[facility] (1) CANNABINOIDS - THC - MARIJUANA 01:47:00 -98 (Negativ e) ng/mL 0 Preliminary Performed by:[facility] (1) FENTANYL 01:47:00 -102.00 (Negativ e) 0.00 Preliminary Cutoff 2ng/mLPerf ormed by:[facility] (1) OXYCODONE 01:47:00 -47 (Negativ e) ng/mL 0 Preliminary Performed by:[facility] (1) ETHYL ALCOHOL 01:47:00 1 (Negativ e) mg/dL 100 Preliminary Performed by:[facility] (1) URINE SPECIFIC GRAVITY 01:47:00 1.007 (Accepta ble) 1.003 - 1.035 Preliminary Performed by:[facility] (1) URINE PH 01:47:00 7.8 (Accepta ble) 4.4 - 9.0 Preliminary Performed by:[facility] (1) URINE CREATININE 01:47:00 51 (Accepta ble) mg/dL 20 - 400 Preliminary Performed by:[facility] (1) Panel Description: Full Confirmation Panel Sabrina higuera Alprazolam 10:44:00 < 20 (CONSIST ENT) ng/mL 20.0 Final Performed by:[facility] (1) 2-Ewlxl-Ofvjcthepn 10:44:00 < 40 (CONSIST ENT) ng/mL 40.0 Final Performed by:[facility] (1) Nordiazepam 10:44:00 < 20 (CONSIST ENT) ng/mL 20.0 Final Performed by:[facility] () Temazepam 10:44:00 < 20 (CONSIST ENT) ng/mL 20.0 Final Performed by:[facility] (1) Lorazepam 10:44:00 < 20 (CONSIST ENT) ng/ml 20.0 Final Performed by:[facility] (1) Amphetamine 10:44:00 < 50 (CONSIST ENT) ng/mL 50.0 Final Performed by:[facility] (1) Methamphetamine 10:44:00 < 50 (CONSIST ENT) ng/mL 50.0 Final Performed by:[facility] (1) Methylphenidate 10:44:00 < 40 (CONSIST ENT) ng/mL 40.0 Final Performed by:[facility] (1) MDMA 10:44:00 < 50 (CONSIST ENT) ng/mL 50.0 Final Performed by:[facility] (1) Buprenorphine 10:44:00 < 10 (CONSIST ENT) ng/mL 10.0 Final Performed by:[facility] (1) Norbuprenorphine 10:44:00 < 40 (CONSIST ENT) ng/mL 40.0 Final Performed by:[facility] (1) Naloxone 10:44:00 < 20 (CONSIST ENT) ng/mL 20.0 Final Performed by:[facility] (1) Propoxyphene 10:44:00 < 20 (CONSIST ENT) ng/mL 20.0 Final Performed by:[facility] (1) EDDP 10:44:00 < 20 (CONSIST ENT) ng/mL 20.0 Final Performed by:[facility] (1) Carisoprodol 10:44:00 < 50 (CONSIST ENT) ng/mL 50.0 Final Performed by:[facility] (1) Meprobamate 10:44:00 < 50 (CONSIST ENT) ng/mL 50.0 Final Performed by:[facility] (1) Zolpidem 10:44:00 < 20 (CONSIST ENT) ng/mL 20.0 Final Performed by:[facility] (1) Codeine 10:44:00 < 50 (CONSIST ENT) ng/mL 50.0 Final Performed by:[facility] (1) Morphine 10:44:00 < 20 (CONSIST ENT) ng/mL 20.0 Final Performed by:[facility] (1) Hydrocodone 10:44:00 < 20 (CONSIST ENT) ng/mL 20.0 Final Performed by:[facility] (1) Hydromorphone 10:44:00 < 20 (CONSIST ENT) ng/mL 20.0 Final Performed by:[facility] (1) Oxycodone 10:44:00 95.8 (CONSIST ENT) ng/mL 50.0 Final Performed by:[facility] (1) Oxymorphone 10:44:00 89.7 (CONSIST ENT) ng/mL 20.0 Final Performed by:[facility] (1) Norfentanyl 10:44:00 < 20 (CONSIST ENT) ng/mL 20.0 Final Performed by:[facility] (1) 6-Acetyl Morphine 10:44:00 < 20 (CONSIST ENT) ng/mL 20.0 Final Performed by:[facility] (1) Phencyclidine 10:44:00 < 20 (CONSIST ENT) ng/mL 20.0 Final Performed by:[facility] (1) Ketamine 10:44:00 < 40 (CONSIST ENT) ng/mL 40.0 Final Performed by:[facility] (1) Benzoylecgonine(Co c Met) 10:44:00 < 10 (CONSIST ENT) ng/ml 20.0 Final Performed by:[facility] (1) Nortriptyline 10:44:00 < 50 (CONSIST ENT) ng/mL 50.0 Final Performed by:[facility] (1) Amtriptyline 10:44:00 < 50 (CONSIST ENT) ng/mL 50.0 Final Performed by:[facility] (1) Fentanyl 10:44:00 < 10 (CONSIST ENT) ng/mL 10.0 Final Performed by:[facility] (1) Norfentanyl 10:44:00 < 20 (CONSIST ENT) ng/mL 20.0 Final Performed by:[facility] (1) LSD 10:44:00 < 10 (CONSIST ENT) ng/ml 10.0 Final Performed by:[facility] (1) O Desmethyl Cis Tramadol 10:44:00 < 50 (CONSIST ENT) ng/ml 50.0 Final Performed by:[facility] (1) Zolpidem 10:44:00 < 20 (CONSIST ENT) ng/mL 20.0 Final Performed by:[facility] (1) Tapentadol 10:44:00 < 40 (CONSIST ENT) ng/mL 40.0 Final Performed by:[facility] (1) Pregabalin 10:44:00 < 50 (CONSIST ENT) ng/mL 50.0 Final Performed by:[facility] (1) Panel Description: URINE DRUG SCREEN Final Image UDT 2 AMPHETAMINE 10:44:00 -104 (Negativ e) ng/mL 0 Final Performed by:[facility] (1) BARBITURATES 10:44:00 -104 (Negativ e) ng/mL 0 Final Performed by:[facility] (1) COCAINE 10:44:00 -102 (Negativ e) ng/mL 0 Final Performed by:[facility] (1) METHADONE 10:44:00 -100 (Negativ e) ng/mL 0 Final Performed by:[facility] (1) OPIATES 10:44:00 -66 (Negativ e) ng/mL 0 Final Performed by:[facility] (1) BENZODIAZEPINES 10:44:00 -91 (Negativ e) ng/mL 0 Final Performed by:[facility] (1) PHENCYCLIDINE - PCP 10:44:00 -104.00 (Negativ e) ng/mL 0.00 Final Performed by:[facility] (1) CANNABINOIDS - THC - MARIJUANA 10:44:00 -98 (Negativ e) ng/mL 0 Final Performed by:[facility] (1) FENTANYL 10:44:00 -102.00 (Negativ e) 0.00 Final Cutoff 2ng/mLPerf ormed by:[facility] (1) OXYCODONE 10:44:00 -47 (Negativ e) ng/mL 0 Final Performed by:[facility] (1) ETHYL ALCOHOL 10:44:00 1 (Negativ e) mg/dL 100 Final Performed by:[facility] (1) URINE SPECIFIC GRAVITY 10:44:00 1.007 (Accepta ble) 1.003 - 1.035 Final Performed by:[facility] (1) URINE PH 10:44:00 7.8 (Accepta ble) 4.4 - 9.0 Final Performed by:[facility] (1) URINE CREATININE 10:44:00 51 (Accepta ble) mg/dL 20 - 400 Final Performed by:[facility] (1) Advance Directives Directive Yes / No Effective Date File Name No Information Encounters Encounter Description Practice Location Reason(s) For Visit Diagnoses Date Provider Providers Copied on Encounter OFFICE/OUTPAT IENT VISIT, EST [facility], [address] [place] [address], [id number] , [place] tel: [phone] [facility] Back Pain (chief complaint) Chronic pain syndromeRadiculo karie, cervical regionPostlamine ctomy syndrome, not elsewhere classifiedLong term (current) use of opiate analgesicEncount er for therapeutic drug level monitoring 4 [facility] Ling. [address] [facility] [address], [place], [id number] , [place]. tel: [phone] Referring Provider: Celestino Ames, [address] [place], [address]. tel:[phone] OFFICE VISIT, [facility] TELEMEDICINE [facility], [address] [place] [address], [id number] , [place] tel: [phone] [facility] Back Pain (chief complaint) Chronic pain syndromeSacroili itis, not elsewhere classifiedRadicu lopathy, cervical regionPostlamine ctomy syndrome, not elsewhere classifiedLong term (current) use of opiate analgesic 4 [facility] Ling. [address] [facility] [address], [place], [id number] , [place]. tel: [phone] OFFICE VISIT, [facility] TELEMEDICINE [facility], [address] [place] [address], [id number] , [place] tel: [phone] [facility] Back Pain (chief complaint) Chronic pain syndromeSacroili itis, not elsewhere classifiedRadicu lopathy, cervical regionPostlamine ctomy syndrome, not elsewhere classifiedLong term (current) use of opiate analgesic 4 Nmongesa Ling. [address] [facility] [address], [place], [id number] , [place]. tel: [phone] OFFICE/OUTPAT IENT VISIT, [facility], [address] [place] [address], [id number] , [place] tel: [phone] [facility] Back Pain (chief complaint) Chronic pain syndromeSacroili itis, not elsewhere classifiedRadicu lopathy, cervical regionPostlamine ctomy syndrome, not elsewhere classifiedLong term (current) use of opiate analgesicEncplacentia-[facility] er for therapeutic drug level monitoring 4 Joyce Dubon. [address] [facility] [address], [place], [id number] , [place]. tel:[phone] Referring Provider: Celestino Ames, [address] [place] [address], [address]. [phone] OFFICE VISIT, EST TELEMEDICINE [facility], [address] [place] [address], [id number] , [place] tel:[phone] [facility] Back Pain (chief complaint) Chronic pain syndromeSacroili itis, not elsewhere classifiedRadicu lopathy, cervical regionPostlamine ctomy syndrome, not elsewhere classifiedLong term (current) use of opiate analgesic 4 Joyce Dubon. [address] [facility] [address] [facility] [address], [place], [id number] , [place]. tel:[phone] OFFICE VISIT, [facility] TELEMEDICINE [facility], [address] [place] [address], [id number] , [place] tel:[phone] [facility] Back Pain (chief complaint) Chronic pain syndromeSacroili itis, not elsewhere classifiedRadicu lopathy, cervical regionPostlamine ctomy syndrome, not elsewhere classifiedLong term (current) use of opiate analgesic 4 Joyce Dubon. [address], [place], [place], [id number] , [place]. tel:[phone] Referring Provider: Celestino Ames, [address] [place] [address], [address]. [phone] OFFICE/OUTPAT IENT VISIT, [facility], [address] [place] [address], [id number] , [place] tel:[phone] [facility] Back Pain (chief complaint) Chronic pain syndromeSacroili itis, not elsewhere classifiedRadicu lopathy, cervical regionPostlamine ctomy syndrome, not elsewhere classifiedLong term (current) use of opiate analgesic 4 Joyce Dubon. [address] [facility] [address], [place], [id number] , [place]. tel: [phone] Referring Provider: Celestino Ames, [address] [place] [address], [address]. tel:[phone] OFFICE VISIT, EST TELEMEDICINE [facility], [address] [place] [address], [id number] , [place] tel: [phone] [facility] Back Pain (chief complaint) Chronic pain syndromeSacroili itis, not elsewhere classifiedRadicu lopathy, cervical regionPostlamine ctomy syndrome, not elsewhere classifiedLong term (current) use of opiate analgesic 4 Joyce Dubon. [address] [facility] [address], [facility] [place], [id number] , [place]. tel: [phone] OFFICE VISIT, EST TELEMEDICINE [facility], [address] [place] [address], [id number] , [place] tel: [phone] [facility] Back pain (chief complaint) Chronic pain syndromeSacroili itis, not elsewhere classifiedRadicu lopathy, cervical regionPostlamine ctomy syndrome, not elsewhere classifiedLong term (current) use of opiate analgesic 4 Joyce Dubon. [address] [facility] [address], [place], [place], [id number] , [place]. tel: [phone] Referring Provider: Celestino Ames, [address] [place] [address], [id number]. tel:[phone] [facility], [address] [place] [address], [id number] , [place] tel: [phone] [facility] Radiculopathy, lumbar region 4 Libby Tirado. [address] [place] [address], [id number] , [place]. tel: [phone] Referring Provider: Celestino Ames, [address] [place] [address], [id number]. tel:[phone] [facility], [address] [place] [address], [id number] , [place] [phone] [facility] lumbago (chief complaint) Radiculopathy, lumbar region 4 Tiffanie Trujillo. [address] [place], [place], [id number] , [place]. tel:[phone] Referring Provider: Celestino Ames, [address] [place] [address], [address]. [phone] OFFICE/OUTPAT IENT VISIT, EST [facility], [address] [place] [address], [id number] , [place] tel:[phone] [facility] Back Pain (chief complaint) Chronic pain syndromeSacroili itis, not elsewhere classifiedRadicu lopathy, cervical regionPostlamine ctomy syndrome, not elsewhere classifiedLong term (current) use of opiate analgesicEncount er for therapeutic drug level monitoringRadicu lopathy, lumbar region 4 Nyongesa Ling. [address] [facility] [address], [place], [place], [id number] , [place]. [phone] Referring Provider: Celestino Ames, [address] [place] [address], [address]. [phone] OFFICE VISIT, EST TELEMEDICINE [facility], [address] [place] [address], [id number] , [place] tel:[phone] [facility] Back pain (chief complaint) Chronic pain syndromeSacroili itis, not elsewhere classifiedRadicu lopathy, cervical regionPostlamine ctomy syndrome, not elsewhere classifiedLong term (current) use of opiate analgesic 3 Nyongesa Ling. [address] [facility] [address], [place], [place], [id number] , [place]. [phone] Referring Provider: Celestino Ames, [address] [place] [address], [address]. [phone] OFFICE VISIT, EST TELEMEDICINE [facility], [address] [place] [address], [id number] , [place] tel:[phone] [facility] Back Pain (chief complaint) Chronic pain syndromeSacroili itis, not elsewhere classifiedRadicu lopathy, cervical regionPostlamine ctomy syndrome, not elsewhere classifiedLong term (current) use of opiate analgesic 3 Dionneongesa Dubon. [address] [facility] [address], [place], [id number] , [place]. tel:[phone] Referring Provider: Celestino Ames, [address] [place] [address], [address]. [phone] OFFICE VISIT, [facility], [address] [place] [address], [id number] , [place] tel:[phone] [facility] Back Pain (chief complaint) Chronic pain syndromeSacroili itis, not elsewhere classifiedRadicu lopathy, cervical regionPostlamine ctomy syndrome, not elsewhere classifiedLong term (current) use of opiate analgesic 3 Joyce Dubon. [address] [facility] [address], [place], [id number] , [place]. tel:[phone] Referring Provider: Celestino Ames, [address] [place] [address], [address]. [phone] OFFICE/OUTPAT IENT VISIT, [facility], [address] [place] [address], [id number] , [place] tel:[phone] [facility] Back Pain (chief complaint) Chronic pain syndromeSacroili itis, not elsewhere classifiedRadicu lopathy, cervical regionPostlamine ctomy syndrome, not elsewhere classifiedLong term (current) use of opiate analgesicEncount er for therapeutic drug level monitoring 3 Nyongesa Ling. [address] [facility] [address], [facility] [place], [id number] , [place]. [phone] Referring Provider: Asif Andersen, [facility] [address], [place], [address]. tel:[phone] [facility], [address] [place], [place], [id number] , [place] tel: [phone] [facility] [place] No Information 3 Nmelle Dubon. [address] [facility] [address], [place], [place], [id number] , [place]. tel: [phone] Referring Provider: Asif Andersen, [facility] [address], [place], [address]. tel:[phone] OFFICE VISIT, EST TELEMEDICINE [facility], [address] [place] [address], [id number] , [place] tel: [phone] [facility] Back pain (chief complaint) Chronic pain syndromeSacroili itis, not elsewhere classifiedRadicu lopathy, cervical regionPostlamine ctomy syndrome, not elsewhere classifiedLong term (current) use of opiate analgesic 3 [facility] Ling. [address], [place], [place], [id number] , [place]. tel: [phone] OFFICE VISIT, EST TELEMEDICINE [facility], [address] [place] [address], [id number] , [place] tel: [phone] [facility] Back Pain (chief complaint) Chronic pain syndromeSacroili itis, not elsewhere classifiedRadicu lopathy, cervical regionPostlamine ctomy syndrome, not elsewhere classifiedLong term (current) use of opiate analgesic 3 [facility] Dubon. [address], [place], [place], [id number] , [place]. tel:[phone] Referring Provider: Celestino Ames, [address] [place], [address]. [phone] OFFICE VISIT, EST TELEMEDICINE [facility], [address] [place] [address], [id number] , [place] tel: [phone] [facility] Back Pain (chief complaint) Chronic pain syndromeSacroili itis, not elsewhere classifiedPostla minectomy syndrome, not elsewhere classifiedLong term (current) use of opiate analgesicRadicul opathy, cervical region [place]- 3 Nyongesa Ling. [address] [facility] [address], [place], [id number] , [place]. tel:[phone] OFFICE/OUTPAT IENT VISIT, EST [facility], [address] [place], [place], [id number] , [place] tel: [phone] [facility] [place] Widespread pain (chief complaint) Chronic pain syndromePostlami nectomy syndrome, not elsewhere classifiedLong term (current) use of opiate analgesicSacroil iitis, not elsewhere classified 3 Nyongesa Ling. [address] [facility] [address], [place], [id number] , [place]. tel: [phone] Referring Provider: Asif Andersen [facility] [address], [place], [address]. tel:[phone] OFFICE/OUTPAT IENT VISIT, EST [facility], [address], [place], [id number] , [place] tel: [phone] [facility] Widespread pain (chief complaint) Chronic pain syndromePostlami nectomy syndrome, not elsewhere classifiedLong term (current) use of opiate analgesic 3 Nyongesa Ling. 34712 [facility] [address], [place], [id number] , [place]. tel: [phone] Referring [facility]: [facility] [address], [place], [address]. tel:[phone] OFFICE VISIT, EST TELEMEDICINE [facility], [address], [place], [id number] , [place] tel: [phone] [facility] [place] Widespread pain (chief complaint) Chronic pain syndromePostlami nectomy syndrome, not elsewhere classifiedLong term (current) use of opiate analgesic Nov- 3 Nyongesa Ling. 24197 [facility] [address], [place], [id number] , [place]. tel: [phone] OFFICE VISIT, EST TELEMEDICINE [facility], [address], [place], [address] , [place] tel: [phone] [facility] Widespread pain (chief complaint) Chronic pain syndromePostlami nectomy syndrome, not elsewhere classifiedLong term (current) use of opiate analgesic 3 Nmongesa Ling. [address], [place], [place], [id number] , [place]. tel: [phone] Referring Provider: Celestino Ames, [address] [place], [address]. tel:[phone] [facility], [address] [place] [address], [id number] , [place] tel: [phone] [facility] No Information 3 [facility]. [address], [place], [place], [id number] , [place]. tel: [phone] Referring Provider: Asif Andersen, [facility] [address], [place], [address]. tel:[phone] [facility], [address] [place] [address], [id number] , [place] tel: [phone] [facility] No Information 3 Nmongesa Ling. [address], [place], [place], [id number] , [place]. tel: [phone] OFFICE VISIT, EST TELEMEDICINE [facility], [address] [place] [address], [id number] , [place] tel: [phone] [facility] Widespread pain (chief complaint) Chronic migraine without aura, intractable, without status migrainosusChron ic pain syndromePain in right kneePostlaminect deanna syndrome, not elsewhere classifiedLong term (current) use of opiate analgesic 3 Nyongesa Ling. [address], [place], [place], [address] , [place]. tel: [phone] Referring Provider: Celestino Ames, [address] [place], [address]. [phone] OFFICE/OUTPAT IENT VISIT, EST [facility], [address], [place], [address] , [place] tel: [phone] [facility] Widespread pain (chief complaint) Chronic migraine without aura, intractable, without status migrainosusChron ic pain syndromePain in right kneePostlaminect deanna syndrome, not elsewhere classifiedLong term (current) use of opiate analgesicEncount er for screening for other disorderEncounte r for therapeutic drug level monitoring 3 Nyongesa Ling. [address] [facility] [address], [place], [place], [address] , [place]. tel: [phone] Referring Provider: Asif Andersen [facility] [address], [place], [address]. tel:[phone] [facility], [address], [place], [id number] , [place] tel:[phone] [facility] No Information 3 Nyongesa Ling. [address] [facility] [address], [place], [place], [id number] , [place]. tel:[phone] Referring Provider: [facility] [address], [place], [address]. tel:[phone] OFFICE VISIT, EST TELEMEDICINE [facility], [address], [place], [id number] , [place] tel: [phone] [facility] Widespread pain (chief complaint) Chronic migraine without aura, intractable, without status migrainosusChron ic pain syndromePain in right kneePostlaminect deanna syndrome, not elsewhere classifiedLong term (current) use of opiate analgesic 2 Nyongesa Ling. 77316 [facility] [address], [place], [id number] , [place]. tel:[phone] OFFICE VISIT, EST TELEMEDICINE [facility], [address], [place], [id number] , [place] tel: [phone] [facility] Widespread pain (chief complaint) Chronic migraine without aura, intractable, without status migrainosusChron ic pain syndromePain in right kneePostlaminect deanna syndrome, not elsewhere classifiedLong term (current) use of opiate analgesic 2 Nyongesa Ling. 26572 [facility] [address], [place], [place], [address] , [place]. tel: [phone] Referring Provider: Celestino Ames, [address] [place], [address]. tel:[phone] OFFICE VISIT, [facility] TELEMEDICINE [facility], [address] [place] [address], [id number] , [place] tel: [phone] [facility] Widespread pain (chief complaint) Chronic migraine without aura, intractable, without status migrainosusChron ic pain syndromePain in right kneePostlaminect deanna syndrome, not elsewhere classifiedLong term (current) use of opiate analgesic 2 Nyongesa Ling. 17760 [facility] [address], [place], [place], [address] , [place]. tel: [phone] OFFICE/OUTPAT IENT VISIT, [facility], [address] [place] [address], [id number] , [place] tel: [phone] [facility] Widespread pain (chief complaint) Chronic migraine without aura, intractable, without status migrainosusChron ic pain syndromePain in right kneePostlaminect deanna syndrome, not elsewhere classifiedLong term (current) use of opiate analgesicEncount er for therapeutic drug level monitoring 0 2 Nyongesa Ling. 88053 [facility] [address], [place], [place], [address] , [place]. tel: [phone] Referring Provider: Asif Andersen, [facility] [address], [place], [address]. tel:[phone] [facility], [address], [place], [id number] , [place] tel: [phone] [facility] No Information May- 2 Nyongesa Ling. 79293 [facility] [address], [place], [place], [address] , [place]. tel:[phone] Referring Provider: Asif Andersen [facility] [address], [place], [address]. tel:[phone] OFFICE VISIT, EST TELEMEDICINE [facility], [address], [place], [id number] , [place] tel:[phone] [facility] Widespread pain (chief complaint) Chronic migraine without aura, intractable, without status migrainosusChron ic pain syndromePain in right kneePostlaminect deanna syndrome, not elsewhere classifiedLong term (current) use of opiate analgesic 2 Joyce Dubon. 00238 [facility] [address] [facility] [address], [place], [id number] , [place]. tel:[phone] Referring Provider: Celestino Ames, [address] [place] [address], [address]. [phone] OFFICE VISIT, [facility], [address] [place] [address], [id number] , [place] tel:[phone] [facility] Widespread pain (chief complaint) Chronic migraine without aura, intractable, without status migrainosusChron ic pain syndromePain in right kneePostlaminect deanna syndrome, not elsewhere classifiedLong term (current) use of opiate analgesic 2 Joyce Dubon. [address], [place], [address] , [place]. tel:[phone] Referring Provider: Asif Andersen [facility] [address], [place], [address]. tel:[phone] OFFICE VISIT, EST TELEMEDICINE [facility], [address] [place] [address], [id number] , [place] tel:[phone] [facility] Widespread pain (chief complaint) Chronic migraine without aura, intractable, without status migrainosusChron ic pain syndromePain in right kneePostlaminect deanna syndrome, not elsewhere classifiedLong term (current) use of opiate analgesic 2 Nyongesa Ling. [address] [facility] [address], [place], [address] , [place]. tel:[phone] [facility], [address] [facility] [place], [id number] , [place] tel:[phone] [facility] [place] No Information 2 Nyongesa Ling. [address] [facility] [address], [place], [id number] , [place]. tel:[phone] OFFICE/OUTPAT IENT VISIT, [facility], [address] [facility] [place], [address] , [place] tel: [phone] [facility] [place] Widespread pain (chief complaint) Chronic pain syndromePain in right kneePostlaminect deanna syndrome, not elsewhere classifiedLong term (current) use of opiate analgesicChronic migraine without aura, intractable, without status migrainosus 2 Nyongesa Ling. [address] [facility] [address], [place], [address] , [place]. tel:[phone] Referring Provider: Asif Andersen [facility] [address], [place], [address]. tel:[phone] OFFICE VISIT, [facility] TELEMEDICINE [facility], [address] [facility] [place], [id number] , [place] tel: [phone] [facility] low back pain (chief complaint) Chronic pain syndromeLong term (current) use of opiate analgesicPostlam inectomy syndrome, not elsewhere classifiedPain in right knee 2 Nyongesa Ling. 90270 [facility] [address], [place], [id number] , [place]. tel:[phone] Referring Provider: Asif Andersen [facility] [address], [place], [address]. tel:[phone] OFFICE VISIT, [facility] TELEMEDICINE [facility], [address], [place], [address] , [place] tel:[phone] [facility] low back pain (chief complaint) Chronic pain syndromeLong term (current) use of opiate analgesicPostlam inectomy syndrome, not elsewhere classifiedPain in right knee 2 Dionneelle Ling. [address], [place], [id number] , [place]. tel:[phone] Referring Provider: Asif Andersen [facility] [address], [place], [address]. tel:[phone] OFFICE VISIT, EST TELEMEDICINE [facility], [address], [place], [id number] , [place] tel: [phone] [facility] low back pain (chief complaint) Postlaminectomy syndrome, not elsewhere classifiedPain in right kneeChronic pain syndromeLong term (current) use of opiate analgesic 1 Stephanie Ling. [address], [place], [id number] , [place]. tel: [phone] [facility], [address], [place], [address] , [place] tel: [phone] [facility] No Information 1 Dionneelle Ling. [address], [place], [id number] , [place]. tel: [phone] OFFICE/OUTPAT IENT VISIT, EST [facility], [address], [place], [address] , [place] tel: [phone] [facility] low back pain (chief complaint) Postlaminectomy syndrome, not elsewhere classifiedPain in right kneeChronic pain syndromeLong term (current) use of opiate analgesicEncount er for screening for other disorderEncounte r for therapeutic drug level monitoring 1 Stephanie Ling. [address], [place], [id number] , [place]. tel: [phone] Referring Provider: Asif Andersen [facility] [address], [place], [address]. tel:[phone] OFFICE VISIT, EST TELEMEDICINE [facility], [address] [place], [place], [address] , [place] tel: [phone] [facility] low back pain (chief complaint) Postlaminectomy syndrome, not elsewhere classifiedPain in right kneeChronic pain syndromeLong term (current) use of opiate analgesic Nov-0 - 1 Nyongesa Ling. 19303 [facility] [address], [place], [address] , [place]. tel: [phone] OFFICE VISIT, EST TELEMEDICINE [facility], [address], [place], [address] , [place] tel:[phone] [facility] low back pain (chief complaint) Postlaminectomy syndrome, not elsewhere classifiedPain in right kneeChronic pain syndromeLong term (current) use of opiate analgesic Jun-0 1 Nyongesa Ling. 61525 [facility] [address], [place], [id number] , [place]. tel: [phone] Referring Provider: Celestino Ames, [address] [place], [address]. tel:[phone] OFFICE VISIT, EST TELEMEDICINE [facility], [address], [place], [id number] , [place] tel: [phone] [facility] low back pain (chief complaint) CervicalgiaPostl aminectomy syndrome, not elsewhere classifiedPain in right kneeChronic pain syndromeLong term (current) use of opiate analgesic Sep-0 1 Nyongesa Ling. 65506 [facility] [address], [place], [id number] , [place]. tel:[phone] Referring Provider: Asif Andersen, [facility] [address], [place], [address]. tel:[phone] [facility], [address], [place], [address] , [place] tel:[phone] [facility] [place] No Information 0 1 Nyongesa Ling. 77387 [facility] [address], [place], [address] , [place]. tel:[phone] Referring Provider: Celestino Ames, [address] [place] [address], [address]. [phone] OFFICE/OUTPAT IENT VISIT, [facility], [address] [place] [address], [id number] , [place] tel:[phone] [facility] low back pain (chief complaint) CervicalgiaPostl aminectomy syndrome, not elsewhere classifiedPain in right kneeChronic pain syndromeLong term (current) use of opiate analgesicNeuropa thyEncounter for therapeutic drug level monitoring 1 Nyongesa Ling. [address] [place] [address] [address], [place], [id number] , [place]. tel:[phone] Referring Provider: Asif Andersen, [facility] [address], [place], [address]. tel:[phone] OFFICE VISIT, [facility], [address] [place] [address], [id number] , [place] tel:[phone] [facility] low back pain (chief complaint) CervicalgiaPostl aminectomy syndrome, not elsewhere classifiedPain in right kneeChronic pain syndromeLong term (current) use of opiate analgesicNeuropa thy 1 Nyongesa Ling. [address] [place] [address], [place], [address] , [place]. tel:[phone] Referring Provider: Celestino Ames, [address] [place] [address], [address]. [phone] OFFICE VISIT, [facility], [address] [place] [address], [id number] , [place] [phone] [facility] low back pain (chief complaint) CervicalgiaPostl aminectomy syndrome, not elsewhere classifiedPain in right kneeChronic pain syndromeLong term (current) use of opiate analgesic 1 Nyongesa Ling. 51675 [facility] [address], [place], [id number] , [place]. tel:[phone] Referring Provider: Celestino Ames, [address] [place] [address], [address]. [phone] OFFICE VISIT, EST TELEMEDICINE [facility], [address] [place] [address], [id number] , [place] tel: [phone] [facility] low back pain (chief complaint) CervicalgiaPostl aminectomy syndrome, not elsewhere classifiedPain in right kneeChronic pain syndromeLong term (current) use of opiate analgesic Nyongesa Ling. 29805 [facility] [address], [place], [address] , [place]. tel:[phone] Referring Provider: Celestino Ames, [address] [place] [address], [address]. [phone] [facility], [address] [place] [address], [id number] , [place] tel:[phone] [facility] Postlaminectomy syndrome, not elsewhere classified Dec- Nyongesa Ling. 43264 [facility] [address], [place], [address] , [place]. tel:[phone] Referring Provider: Asif Andersen [facility] [address], [place], [address]. tel:[phone] [facility], [address] [place] [address], [id number] , [place] tel:[phone] [facility] Postlaminectomy syndrome, not elsewhere classified Dec- 1 Nyongesa Ling. 91694 [facility] [address], [place], [id number] , [place]. tel:[phone] Referring Provider: Asif Andersen [facility] [address], [place], [address]. tel:[phone] [facility], [address] [place] [address], [id number] , [place] tel:[phone] [facility] Postlaminectomy syndrome, not elsewhere classified Dec-0 1 Grecia Gonzalez. [facility], [address], [place], [address], [place]. tel: [phone] Referring Provider: Asif Andersen, [facility] [address], [place], [address]. tel:[phone] OFFICE VISIT, EST TELEMEDICINE [facility], [address], [place], [id number] , [place] tel: [phone] [facility] Low back pain (chief complaint) CervicalgiaPostl aminectomy syndrome, not elsewhere classifiedPain in right kneeChronic pain syndromeLong term (current) use of opiate analgesic 1 Nyongesa Ling. 48972 [facility] [address], [place], [place], [address] , [place]. tel: [phone] Referring Provider: Celestino Ames, [address] [place] [address], [address]. tel:[phone] OFFICE/OUTPAT IENT VISIT, EST Telehealth [facility], [address], [place], [address] , [place] tel: [phone] [facility] low back pain (chief complaint) CervicalgiaPostl aminectomy syndrome, not elsewhere classifiedPain in right kneeChronic pain syndromeLong term (current) use of opiate analgesic 1 Nyongesa Ling. 32903 [facility] [address], [place], [place], [address] , [place]. tel:[phone] Referring Provider: Asif Andersen [facility] [address], [place], [address]. tel:[phone] OFFICE VISIT, EST TELEMEDICINE [facility], [address] [place] [address], [id number] , [place] tel:[phone] [facility] low back pain (chief complaint) CervicalgiaPostl aminectomy syndrome, not elsewhere classifiedPain in right kneeChronic pain syndromeLong term (current) use of opiate analgesic 1 Nyongesa Ling. 83314 [facility] [address], [place], [address] , [place]. tel: [phone] Referring Provider: Asif Andersen [facility] [address] [place], [address]. tel: [phone] OFFICE VISIT, EST TELEMEDICINE [facility], [address], [place], [address] , [place] tel: [phone] [facility] [place] low back pain (chief complaint) CervicalgiaPostl aminectomy syndrome, not elsewhere classifiedPain in right kneeChronic pain syndromeLong term (current) use of opiate analgesic 1 Nyonge Ling. 36764 [facility] [address] [facility] [address], [place], [address] , [place]. tel: [phone] Referring Provider: Asif Andersen [facility] [address] [place], [address]. tel:[phone] [facility], [address], [place], [id number] , [place] tel: [phone] [facility] [place] No Information 0 Nyelle Dubon. 74923 [facility] [address] [facility] [address], [place], [place], [address] , [place]. tel: [phone] Referring Provider: Asif Andersen [facility] [address], [place], [address]. tel: [phone] OFFICE VISIT, EST TELEMEDICINE [facility], [address], [place], [address] , [place] tel: [phone] [facility] (chief complaint) CervicalgiaPostl aminectomy syndrome, not elsewhere classifiedPain in right kneeChronic pain syndromeLong term (current) use of opiate analgesicEncount er for therapeutic drug level monitoring 0 Nyongesa Ling. 36821 [facility] [address], [place], [place], [address] , [place]. tel: [phone] Referring Provider: Asif Andersen [facility] [address], [place], [address]. tel:[phone] [facility], [address], [place], [id number] , [place] tel: [phone] [facility] [place] lumbago (chief complaint) Postlaminectomy syndrome, not elsewhere classified Jul-- 0 Ximena Botello. [address] [place], [place], [id number] , [place]. tel: [phone] OFFICE VISIT, [facility] TELEMEDICINE [facility], [address] [place] [address], [id number] , [place] tel: [phone] [facility] low back pain (chief complaint) CervicalgiaPostl aminectomy syndrome, not elsewhere classifiedPain in right kneeChronic pain syndromeLong term (current) use of opiate analgesic 0 Joyce Dubon. [address] [facility] [address], [place], [id number] , [place]. tel: [phone] Referring Provider: Asif Andersen, [facility] [address], [place], [address]. tel:[phone] Psych Dx Eval [facility], [address], [place], [id number] , [place] tel: [phone] [facility] Pain disorder with related psychological factors 0 Senia Parks. [address] [place], [place], [address] , [place]. tel: [phone] Referring Provider: Celestino Ames, [address] [place], [address]. tel:[phone] OFFICE/OUTPAT IENT VISIT, [facility], [address], [place], [address] , [place] tel: [phone] [facility] [place] low back pain (chief complaint) Chronic pain syndromeEncounte r for screening for other disorderPain in right kneePostlaminect deanna syndrome, not elsewhere classifiedCervic algiaEncounter for therapeutic drug level monitoring 0 Joyce Dubon. 88645 [facility] [address], [place], [id number] , [place]. tel:[phone] Referring Provider: Asif Andersen, [facility] [address], [place], [address]. tel:[phone] Family History Family Member Type Diagnosis Age At Onset Father Problem back problems Brother Problem back problems Mother Problem back problems Payers Payer name Insurance type Covered alliance party ID Shoaib dominguez(sailaja RODRIGEZ [id number] Social History Type Description Quantity Date Captured Comments Alcohol Use Details No Caffeine Use Details Unknown Tobacco Use Status Current non-smoker Smoking Status Never smoker Sex Male Vital Signs Date / Time: Height Weight BMI Pulse Rate Blood Pressure Temperature Respiratory Rate Body Surface Area Head Circumference Head Circ. Percentile Wt./Timbo. Percentile BMI percentile Pulse Ox Inhaled Ox 8:56 AM 72.44 in 93.984 kg (207.20 lbs) 27.7 6 kg/m eter (2) 2.19 meter(2) Chief Complaint And Reason For Visit From encounter dated 07/20/2024 09:00'. Back Pain (chief complaint). Description: Duration: chronic. The problem is stable. It occurs persistently. The client describes the pain as an ache, burning and sharp. Symptoms are aggravated by sitting, bending forward, bending backwards, reaching overhead, housework and social activities. Symptoms are relieved by exercise, pain meds/drugs, standing and walking. Additional information: Rates low back pain as 6/10, leg pain as 6/10, and R knee pain as 6/10. Reason For Referral Reason For Referral No Information Plan Of Treatment Date Type Action Status Goal FIT. Due on due Goal Lipid panel. Due on due Goal Height. Due on d ue Goal UDT. Due on due Goal RUBY ON RAILS ENGINEER Scanned. Due on due Goal DIAL PAINTER Paperwork. Due on due Goal OARS. Due on due Goal Creatinine. Due on due Goal AST (SGOT). Due on due Goal ALT (SGPT). Due on due Goal Order Annual PT. Due on due Goal Hepatitis C scre ening. Due on due Goal PHQ-9. Due on du e Goal Review Allergy L ist. Due on due Goal Weight. Due on d ue Goal Tobacco Use. Due on due Goal CT-Colonography. Due on due Goal Medication Recon ciliation. Due on due Goal Unhealthy drug u se screening. Due on due Goal Update Social Hi story. Due on due Goal Zoster vaccine ( ). Due on due Goal FIT-DNA. Due on due Goal Lifestyle educat ion regarding diet completed Goal Hepatitis C scre ening. Due on due Goal Zoster vaccine ( 1st). Due on due Goal DIAL PAINTER Paperwork. Due on due Goal UDT. Due on due Goal FIT-DNA. Due on due Goal Review Allergy L ist. Due on due Goal CT-Colonography. Due on due Goal Order Annual PT. Due on due Goal Weight. Due on d ue Goal ALT (SGPT). Due on due Goal Tobacco Use. Due on due Goal AST (SGOT). Due on due Goal Height. Due on d ue Goal FIT. Due on due Goal RUBY ON RAILS ENGINEER Scanned. Due on due Goal Medication Recon ciliation. Due on due Goal PHQ-9. Due on du e Goal Lipid panel. Due on due Goal Update Social Hi story. Due on due Goal Unhealthy drug u se screening. Due on due Goal OARS. Due on due Goal Creatinine. Due on due Goal PHQ-9. Due on du e Goal AST (SGOT). Due on due Goal Zoster vaccine ( 1st). Due on due Goal ALT (SGPT). Due on due Goal Lipid panel. Due on due Goal CT-Colonography. Due on due Goal Review Allergy L ist. Due on due Goal Creatinine. Due on due Goal DIAL PAINTER Paperwork. Due on due Goal RUBY ON RAILS ENGINEER Scanned. Due on due Goal Unhealthy drug u se screening. Due on due Goal FIT-DNA. Due on due Goal FIT. Due on due Goal Update Social Hi story. Due on due Goal Tobacco Use. Due on due Goal Weight. Due on d ue Goal OARS. Due on due Goal Hepatitis C scre ening. Due on due Goal Order Annual PT. Due on due Goal UDT. Due on due Goal Height. Due on d ue Goal Medication Recon ciliation. Due on due Goal Creatinine. Due on due Goal RUBY ON RAILS ENGINEER Scanned. Due on due Goal ALT (SGPT). Due on due Goal Order Annual PT. Due on due Goal DIAL PAINTER Paperwork. Due on due Goal OARS. Due on due Goal UDT. Due on due Goal FIT-DNA. Due on due Goal PHQ-9. Due on du e Goal Tobacco Use. Due on due Goal Update Social Hi story. Due on due Goal Lipid panel. Due on due Goal FIT. Due on due Goal Unhealthy drug u se screening. Due on due Goal Weight. Due on d ue Goal AST (SGOT). Due on due Goal Height. Due on d ue Goal Review Allergy L ist. Due on due Goal Medication Recon ciliation. Due on due Goal Hepatitis C scre ening. Due on due Goal CT-Colonography. Due on due Goal Zoster vaccine ( 1st). Due on due Goal ALT (SGPT). Due on due Goal FIT. Due on due Goal Unhealthy drug u se screening. Due on due Goal DIAL PAINTER Paperwork. Due on due Goal AST (SGOT). Due on due Goal CT-Colonography. Due on due Goal Order Annual PT. Due on due Goal OARS. Due on due Goal Creatinine. Due on due Goal PHQ-9. Due on du e Goal Weight. Due on d ue Goal UDT. Due on due Goal Update Social Hi story. Due on due Goal Tobacco Use. Due on due Goal RUBY ON RAILS ENGINEER Scanned. Due on due Goal Height. Due on d ue Goal Zoster vaccine ( 1st). Due on due Goal Review Allergy L ist. Due on due Goal Lipid panel. Due on due Goal Medication Recon ciliation. Due on due Goal Hepatitis C scre ening. Due on due Goal FIT-DNA. Due on due Goal OARS. Due on due Goal DIAL PAINTER Paperwork. Due on due Goal AST (SGOT). Due on due Goal Creatinine. Due on due Goal RUBY ON RAILS ENGINEER Scanned. Due on due Goal ALT (SGPT). Due on due Goal Order Annual PT. Due on due Goal UDT. Due on due Goal Hepatitis C scre ening. Due on due Goal FIT-DNA. Due on due Goal Height. Due on d ue Goal Zoster vaccine ( 1st). Due on due Goal Unhealthy drug u se screening. Due on due Goal Tobacco Use. Due on due Goal FIT. Due on due Goal Update Social Hi story. Due on due Goal Medication Recon ciliation. Due on due Goal Weight. Due on d ue Goal CT-Colonography. Due on due Goal PHQ-9. Due on du e Goal Lipid panel. Due on due Goal Review Allergy L ist. Due on due Goal AST (SGOT). Due on due Goal OARS. Due on due Goal Order Annual PT. Due on due Goal DIAL PAINTER Paperwork. Due on due Goal Hepatitis C scre ening. Due on due Goal Lipid panel. Due on due Goal RUBY ON RAILS ENGINEER Scanned. Due on due Goal Creatinine. Due on due Goal UDT. Due on due Goal Height. Due on d ue Goal ALT (SGPT). Due on due Goal Weight. Due on d ue Goal Zoster vaccine ( 1st). Due on due Goal Medication Recon ciliation. Due on due Goal Unhealthy drug u se screening. Due on due Goal FIT-DNA. Due on due Goal Tobacco Use. Due on due Goal PHQ-9. Due on du e Goal Update Social Hi story. Due on due Goal FIT. Due on due Goal Review Allergy L ist. Due on due Goal CT-Colonography. Due on due Goal PHQ-9. Due on du e Goal Order Annual PT. Due on due Goal OARS. Due on due Goal UDT. Due on due Goal Creatinine. Due on due Goal Medication Recon ciliation. Due on due Goal ALT (SGPT). Due on due Goal Update Social Hi story. Due on due Goal Hepatitis C scre ening. Due on due Goal Height. Due on d ue Goal FIT-DNA. Due on due Goal Unhealthy drug u se screening. Due on due Goal Zoster vaccine ( 1st). Due on due Goal FIT. Due on due Goal CT-Colonography. Due on due Goal Review Allergy L ist. Due on due Goal RUBY ON RAILS ENGINEER Scanned. Due on due Goal DIAL PAINTER Paperwork. Due on due Goal Weight. Due on d ue Goal AST (SGOT). Due on due Goal Lipid panel. Due on due Goal Tobacco Use. Due on due Goal OARS. Due on due Goal AST (SGOT). Due on due Goal Creatinine. Due on due Goal ALT (SGPT). Due on due Goal UDT. Due on due Goal Weight. Due on d ue Goal Tobacco Use. Due on due Goal Hepatitis C scre ening. Due on due Goal Lipid panel. Due on due Goal Medication Recon ciliation. Due on due Goal PHQ-9. Due on du e Goal Height. Due on d ue Goal Review Allergy L ist. Due on due Goal RUBY ON RAILS ENGINEER Scanned. Due on due Goal Update Social Hi story. Due on due Goal DIAL PAINTER Paperwork. Due on due Goal Unhealthy drug u se screening. Due on due Goal FIT. Due on due Goal FIT-DNA. Due on due Goal CT-Colonography. Due on due Goal Order Annual PT. Due on due Goal Zoster vaccine ( 1st). Due on due Goal Lipid panel. Due on due Goal PHQ-9. Due on du e Goal DIAL PAINTER Paperwork. Due on due Goal Order Annual PT. Due on due Goal FIT-DNA. Due on due Goal FIT. Due on due Goal Update Social Hi story. Due on due Goal RUBY ON RAILS ENGINEER Scanned. Due on due Goal OARS. Due on due Goal Height. Due on d ue Goal UDT. Due on due Goal Creatinine. Due on due Goal AST (SGOT). Due on due Goal Tobacco Use. Due on due Goal Zoster vaccine ( 1st). Due on due Goal ALT (SGPT). Due on due Goal Hepatitis C scre ening. Due on due Goal Review Allergy L ist. Due on due Goal Medication Recon ciliation. Due on due Goal CT-Colonography. Due on due Goal Unhealthy drug u se screening. Due on due Goal Weight. Due on d ue Goal DIAL PAINTER Paperwork. Due on due Goal OARS. Due on due Goal UDT. Due on due Goal AST (SGOT). Due on due Goal Order Annual PT. Due on due Goal FIT. Due on due Goal Tobacco Use. Due on due Goal Creatinine. Due on due Goal RUBY ON RAILS ENGINEER Scanned. Due on due Goal ALT (SGPT). Due on due Goal CT-Colonography. Due on due Goal PHQ-9. Due on du e Goal Review Allergy L ist. Due on due Goal FIT-DNA. Due on due Goal Medication Recon ciliation. Due on due Goal Hepatitis C scre ening. Due on due Goal Height. Due on d ue Goal Zoster vaccine ( ). Due on due Goal Unhealthy drug u se screening. Due on due Goal Weight. Due on d ue Goal Update Social Hi story. Due on due Goal Lipid panel. Due on due Goal Lifestyle educat ion regarding diet completed Goal UDT. Due on due Goal Tobacco Use. Due on due Goal FIT. Due on due Goal Order Annual PT. Due on due Goal Unhealthy drug u se screening. Due on due Goal FIT-DNA. Due on due Goal OARS. Due on due Goal Review Allergy L ist. Due on due Goal DIAL PAINTER Paperwork. Due on due Goal Lipid panel. Due on due Goal Zoster vaccine ( 1st). Due on due Goal Update Social Hi story. Due on due Goal Weight. Due on d ue Goal AST (SGOT). Due on due Goal Medication Recon ciliation. Due on due Goal Creatinine. Due on due Goal PHQ-9. Due on du e Goal Height. Due on d ue Goal RUBY ON RAILS ENGINEER Scanned. Due on due Goal Hepatitis C scre ening. Due on due Goal CT-Colonography. Due on due Goal ALT (SGPT). Due on due Goal ALT (SGPT). Due on due Goal Zoster vaccine ( 1st). Due on due Goal CT-Colonography. Due on due Goal OARS. Due on due Goal Update Social Hi story. Due on due Goal Unhealthy drug u se screening. Due on due Goal RUBY ON RAILS ENGINEER Scanned. Due on due Goal AST (SGOT). Due on due Goal Weight. Due on d ue Goal PHQ-9. Due on du e Goal FIT-DNA. Due on due Goal Creatinine. Due on due Goal DIAL PAINTER Paperwork. Due on due Goal Order Annual PT. Due on due Goal Review Allergy L ist. Due on due Goal UDT. Due on due Goal Tobacco Use. Due on due Goal Height. Due on d ue Goal Hepatitis C scre ening. Due on due Goal FIT. Due on due Goal Medication Recon ciliation. Due on due Goal Lipid panel. Due on due Goal Update Social Hi story. Due on due Goal Weight. Due on d ue Goal FIT-DNA. Due on due Goal Hepatitis C scre ening. Due on due Goal UDT. Due on due Goal Review Allergy L ist. Due on due Goal RUBY ON RAILS ENGINEER Scanned. Due on due Goal Zoster vaccine ( 1st). Due on due Goal Creatinine. Due on due Goal Height. Due on d ue Goal FIT. Due on due Goal PHQ-9. Due on du e Goal Medication Recon ciliation. Due on due Goal Lipid panel. Due on due Goal ALT (SGPT). Due on due Goal AST (SGOT). Due on due Goal OARS. Due on due Goal DIAL PAINTER Paperwork. Due on due Goal Tobacco Use. Due on due Goal Unhealthy drug u se screening. Due on due Goal Order Annual PT. Due on due Goal CT-Colonography. Due on due Goal Unhealthy drug u se screening. Due on due Goal PHQ-9. Due on du e Goal UDT. Due on due Goal Weight. Due on d ue Goal RUBY ON RAILS ENGINEER Scanned. Due on due Goal Tobacco Use. Due on due Goal FIT. Due on due Goal Height. Due on d ue Goal Order Annual PT. Due on due Goal Review Allergy L ist. Due on due Goal AST (SGOT). Due on due Goal Lipid panel. Due on due Goal ALT (SGPT). Due on due Goal CT-Colonography. Due on due Goal OARS. Due on due Goal Creatinine. Due on due Goal Update Social Hi story. Due on due Goal Medication Recon ciliation. Due on due Goal DIAL PAINTER Paperwork. Due on due Goal Hepatitis C scre ening. Due on due Goal FIT-DNA. Due on due Goal Zoster vaccine ( 1st). Due on due Goal Creatinine. Due on due Goal Review Allergy L ist. Due on due Goal ALT (SGPT). Due on due Goal RUBY ON RAILS ENGINEER Scanned. Due on due Goal Lipid panel. Due on 023 due Goal Weight. Due on d ue Goal FIT. Due on due Goal Order Annual PT. Due on due Goal Tobacco Use. Due on 023 due Goal AST (SGOT). Due on due Goal PHQ-9. Due on du e Goal DIAL PAINTER Paperwork. Due on due Goal Height. Due on d ue Goal UDT. Due on due Goal OARS. Due on due Goal CT-Colonography. Due on due Goal Hepatitis C scre ening. Due on due Goal Medication Recon ciliation. Due on due Goal Zoster vaccine ( ). Due on due Goal FIT-DNA. Due on due Goal Update Social Hi story. Due on due Goal Unhealthy drug u se screening. Due on due Goal UDT. Due on due Goal PHQ-9. Due on du e Goal DIAL PAINTER Paperwork. Due on due Goal ALT (SGPT). Due on due Goal Height. Due on d ue Goal Creatinine. Due on due Goal RUBY ON RAILS ENGINEER Scanned. Due on 023 due Goal Order Annual PT. Due on due Goal Zoster vaccine ( ). Due on due Goal OARS. Due on due Goal Hepatitis C scre ening. Due on due Goal Update Social Hi story. Due on due Goal AST (SGOT). Due on due Goal CT-Colonography. Due on due Goal Review Allergy L ist. Due on due Goal Weight. Due on d ue Goal FIT-DNA. Due on due Goal Medication Recon ciliation. Due on due Goal Unhealthy drug u se screening. Due on due Goal FIT. Due on due Goal Tobacco Use. Due on due Goal Lipid panel. Due on due Goal OARS. Due on due Goal Update Social Hi story. Due on due Goal Hepatitis C scre ening. Due on due Goal ALT (SGPT). Due on due Goal Height. Due on d ue Goal Zoster vaccine ( 1st). Due on due Goal PHQ-9. Due on du e Goal UDT. Due on due Goal DIAL PAINTER Paperwork. Due on due Goal Unhealthy drug u se screening. Due on due Goal FIT-DNA. Due on due Goal Medication Recon ciliation. Due on due Goal AST (SGOT). Due on due Goal FIT. Due on due Goal Review Allergy L ist. Due on due Goal Tobacco Use. Due on due Goal Order Annual PT. Due on due Goal CT-Colonography. Due on due Goal Creatinine. Due on due Goal RUBY ON RAILS ENGINEER Scanned. Due on due Goal Weight. Due on d ue Goal Lipid panel. Due on due Goal RUBY ON RAILS ENGINEER Scanned. Due on due Goal Order Annual PT. Due on due Goal OARS. Due on due Goal Hepatitis C scre ening. Due on due Goal Weight. Due on d ue Goal Unhealthy drug u se screening. Due on due Goal ALT (SGPT). Due on due Goal Creatinine. Due on due Goal AST (SGOT). Due on due Goal UDT. Due on due Goal DIAL PAINTER Paperwork. Due on due Goal FIT-DNA. Due on due Goal Tobacco Use. Due on due Goal Update Social Hi story. Due on due Goal Medication Recon ciliation. Due on due Goal FIT. Due on due Goal Height. Due on d ue Goal PHQ-9. Due on du e Goal Zoster vaccine ( 1st). Due on due Goal Review Allergy L ist. Due on due Goal CT-Colonography. Due on due Goal Lipid panel. Due on due Goal Hepatitis C scre ening. Due on due Goal Unhealthy drug u se screening. Due on due Goal FIT-DNA. Due on due Goal Weight. Due on d ue Goal CT-Colonography. Due on due Goal PHQ-9. Due on du e Goal Lipid panel. Due on due Goal OARS. Due on due Goal RUBY ON RAILS ENGINEER Scanned. Due on due Goal Order Annual PT. Due on due Goal UDT. Due on due Goal AST (SGOT). Due on due Goal Update Social Hi story. Due on due Goal Height. Due on d ue Goal Medication Recon ciliation. Due on due Goal ALT (SGPT). Due on due Goal FIT. Due on due Goal Review Allergy L ist. Due on due Goal Zoster vaccine ( 1st). Due on due Goal Creatinine. Due on due Goal Tobacco Use. Due on due Goal DIAL PAINTER Paperwork. Due on due Goal AST (SGOT). Due on due Goal Zoster vaccine ( 1st). Due on due Goal Medication Recon ciliation. Due on due Goal Creatinine. Due on due Goal FIT-DNA. Due on due Goal FIT. Due on due Goal UDT. Due on due Goal RUBY ON RAILS ENGINEER Scanned. Due on due Goal Lipid panel. Due on due Goal Unhealthy drug u se screening. Due on due Goal OARS. Due on due Goal ALT (SGPT). Due on due Goal Update Social Hi story. Due on due Goal Hepatitis C scre ening. Due on due Goal DIAL PAINTER Paperwork. Due on due Goal Order Annual PT. Due on due Goal Weight. Due on d ue Goal Height. Due on d ue Goal PHQ-9. Due on du e Goal CT-Colonography. Due on due Goal Tobacco Use. Due on due Goal Review Allergy L ist. Due on due Goal ALT (SGPT). Due on due Goal DIAL PAINTER Paperwork. Due on due Goal AST (SGOT). Due on due Goal OARS. Due on due Goal Creatinine. Due on due Goal PHQ-9. Due on du e Goal Tobacco Use. Due on due Goal CT-Colonography. Due on due Goal Height. Due on d ue Goal Review Allergy L ist. Due on due Goal Unhealthy drug u se screening. Due on due Goal Lipid panel. Due on due Goal Update Social Hi story. Due on due Goal Medication Recon ciliation. Due on due Goal FIT. Due on due Goal Zoster vaccine ( ). Due on due Goal FIT-DNA. Due on due Goal Order Annual PT. Due on due Goal UDT. Due on due Goal Hepatitis C scre ening. Due on due Goal Weight. Due on d ue Goal RUBY ON RAILS ENGINEER Scanned. Due on due Goal AST (SGOT). Due on due Goal Hepatitis C scre ening. Due on due Goal Review Allergy L ist. Due on due Goal Height. Due on d ue Goal Tobacco Use. Due on due Goal Medication Recon ciliation. Due on due Goal ALT (SGPT). Due on due Goal Creatinine. Due on due Goal CT-Colonography. Due on due Goal PHQ-9. Due on du e Goal OARS. Due on due Goal Zoster vaccine ( 1st). Due on due Goal Unhealthy drug u se screening. Due on due Goal DIAL PAINTER Paperwork. Due on due Goal FIT-DNA. Due on due Goal UDT. Due on due Goal RUBY ON RAILS ENGINEER Scanned. Due on due Goal Order Annual PT. Due on due Goal Weight. Due on d ue Goal Lipid panel. Due on due Goal FIT. Due on due Goal Update Social Hi story. Due on due Goal UDT. Due on due Goal ALT (SGPT). Due on due Goal AST (SGOT). Due on due Goal OARS. Due on due Goal DIAL PAINTER Paperwork. Due on due Goal Order Annual PT. Due on due Goal Creatinine. Due on due Goal RUBY ON RAILS ENGINEER Scanned. Due on due Goal FIT-DNA. Due on due Goal Weight. Due on d ue Goal Tobacco Use. Due on due Goal Hepatitis C scre ening. Due on due Goal Review Allergy L ist. Due on due Goal FIT. Due on due Goal PHQ-9. Due on du e Goal Lipid panel. Due on due Goal Unhealthy drug u se screening. Due on due Goal Medication Recon ciliation. Due on due Goal Height. Due on d ue Goal Zoster vaccine ( 1st). Due on due Goal CT-Colonography. Due on due Goal Update Social Hi story. Due on due Goal DIAL PAINTER Paperwork. Due on due Goal Creatinine. Due on due Goal ALT (SGPT). Due on due Goal AST (SGOT). Due on due Goal UDT. Due on due Goal Update Social Hi story. Due on due Goal OARS. Due on due Goal Review Allergy L ist. Due on due Goal Weight. Due on d ue Goal Unhealthy drug u se screening. Due on due Goal PHQ-9. Due on du e Goal RUBY ON RAILS ENGINEER Scanned. Due on due Goal FIT-DNA. Due on due Goal Height. Due on d ue Goal Lipid panel. Due on due Goal Tobacco Use. Due on due Goal FIT. Due on due Goal Hepatitis C scre ening. Due on due Goal Medication Recon ciliation. Due on due Goal CT-Colonography. Due on due Goal Order Annual PT. Due on due Goal Zoster vaccine ( 1st). Due on due Goal AST (SGOT). Due on due Goal ALT (SGPT). Due on due Goal Weight. Due on d ue Goal RUBY ON RAILS ENGINEER Scanned. Due on due Goal Order Annual PT. Due on due Goal OARS. Due on due Goal UDT. Due on due Goal Zoster vaccine ( 1st). Due on due Goal Creatinine. Due on due Goal FIT-DNA. Due on due Goal Tobacco Use. Due on due Goal Review Allergy L ist. Due on due Goal DIAL PAINTER Paperwork. Due on due Goal Height. Due on d ue Goal Lipid panel. Due on due Goal CT-Colonography. Due on due Goal Hepatitis C scre ening. Due on due Goal Update Social Hi story. Due on due Goal FIT. Due on due Goal Unhealthy drug u se screening. Due on due Goal PHQ-9. Due on du e Goal Medication Recon ciliation. Due on due Goal UDT. Due on due Goal Creatinine. Due on due Goal Order Annual PT. Due on due Goal FIT-DNA. Due on due Goal RUBY ON RAILS ENGINEER Scanned. Due on due Goal AST (SGOT). Due on due Goal ALT (SGPT). Due on due Goal DIAL PAINTER Paperwork. Due on due Goal OARS. Due on due Goal Zoster vaccine ( 1st). Due on due Goal Hepatitis C scre ening. Due on due Goal CT-Colonography. Due on due Goal PHQ-9. Due on du e Goal Medication Recon ciliation. Due on due Goal Lipid panel. Due on due Goal Unhealthy drug u se screening. Due on due Goal Height. Due on d ue Goal Weight. Due on d ue Goal Tobacco Use. Due on due Goal Review Allergy L ist. Due on due Goal FIT. Due on due Goal Update Social Hi story. Due on due Goal DIAL PAINTER Paperwork. Due on due Goal UDT. Due on due Goal ALT (SGPT). Due on due Goal Order Annual PT. Due on due Goal AST (SGOT). Due on due Goal RUBY ON RAILS ENGINEER Scanned. Due on due Goal Creatinine. Due on due Goal OARS. Due on due Goal FIT. Due on due Goal PHQ-9. Due on du e Goal Height. Due on d ue Goal FIT-DNA. Due on due Goal Weight. Due on d ue Goal Review Allergy L ist. Due on due Goal Zoster vaccine ( 1st). Due on due Goal Tobacco Use. Due on due Goal Medication Recon ciliation. Due on due Goal Update Social Hi story. Due on due Goal CT-Colonography. Due on due Goal Lipid panel. Due on due Goal Unhealthy drug u se screening. Due on due Goal Hepatitis C scre ening. Due on due Goal AST (SGOT). Due on due Goal Weight. Due on d ue Goal OARS. Due on due Goal FIT. Due on due Goal Order Annual PT. Due on due Goal Zoster vaccine ( 1st). Due on due Goal PHQ-9. Due on du e Goal DIAL PAINTER Paperwork. Due on due Goal RUBY ON RAILS ENGINEER Scanned. Due on due Goal Medication Recon ciliation. Due on due Goal Creatinine. Due on due Goal Update Social Hi story. Due on due Goal CT-Colonography. Due on due Goal UDT. Due on due Goal FIT-DNA. Due on due Goal ALT (SGPT). Due on due Goal Tobacco Use. Due on due Goal Height. Due on d ue Goal Lipid panel. Due on due Goal Hepatitis C scre ening. Due on due Goal Unhealthy drug u se screening. Due on due Goal Review Allergy L ist. Due on due Goal AST (SGOT). Due on due Goal OARS. Due on due Goal ALT (SGPT). Due on due Goal RUBY ON RAILS ENGINEER Scanned. Due on due Goal Weight. Due on d ue Goal Update Social Hi story. Due on due Goal Creatinine. Due on due Goal Order Annual PT. Due on due Goal DIAL PAINTER Paperwork. Due on due Goal UDT. Due on due Goal PHQ-9. Due on du e Goal Zoster vaccine ( 1st). Due on due Goal Tobacco Use. Due on due Goal Medication Recon ciliation. Due on due Goal CT-Colonography. Due on due Goal Height. Due on d ue Goal Hepatitis C scre ening. Due on due Goal Lipid panel. Due on due Goal Unhealthy drug u se screening. Due on due Goal FIT. Due on due Goal FIT-DNA. Due on due Goal Review Allergy L ist. Due on due Goal Order Annual PT. Due on due Goal RUBY ON RAILS ENGINEER Scanned. Due on due Goal OARS. Due on due Goal UDT. Due on due Goal AST (SGOT). Due on due Goal DIAL PAINTER Paperwork. Due on due Goal Creatinine. Due on due Goal ALT (SGPT). Due on due Goal Tobacco Use. Due on due Goal Lipid panel. Due on due Goal Weight. Due on d ue Goal Update Social Hi story. Due on due Goal Medication Recon ciliation. Due on due Goal Height. Due on d ue Goal PHQ-9. Due on du e Goal CT-Colonography. Due on due Goal Zoster vaccine ( ). Due on due Goal Unhealthy drug u se screening. Due on due Goal Hepatitis C scre ening. Due on due Goal FIT-DNA. Due on due Goal FIT. Due on due Goal Review Allergy L ist. Due on due Goal Creatinine. Due on due Goal UDT. Due on due Goal RUBY ON RAILS ENGINEER Scanned. Due on due Goal OARS. Due on due Goal Hepatitis C scre ening. Due on due Goal AST (SGOT). Due on due Goal Update Social Hi story. Due on due Goal Order Annual PT. Due on due Goal DIAL PAINTER Paperwork. Due on due Goal Height. Due on d ue Goal ALT (SGPT). Due on due Goal Unhealthy drug u se screening. Due on due Goal PHQ-9. Due on du e Goal Review Allergy L ist. Due on due Goal Tobacco Use. Due on due Goal FIT-DNA. Due on due Goal Zoster vaccine ( 1st). Due on due Goal FIT. Due on due Goal CT-Colonography. Due on due Goal Medication Recon ciliation. Due on due Goal Lipid panel. Due on due Goal Weight. Due on d ue Goal CT-Colonography. Due on due Goal Height. Due on d ue Goal Update Social Hi story. Due on due Goal Hepatitis C scre ening. Due on due Goal OARS. Due on due Goal UDT. Due on due Goal ALT (SGPT). Due on due Goal RUBY ON RAILS ENGINEER Scanned. Due on due Goal Tobacco Use. Due on due Goal Weight. Due on d ue Goal AST (SGOT). Due on due Goal DIAL PAINTER Paperwork. Due on due Goal FIT. Due on due Goal Lipid panel. Due on due Goal Order Annual PT. Due on due Goal Creatinine. Due on due Goal Unhealthy drug u se screening. Due on due Goal Review Allergy L ist. Due on due Goal Medication Recon ciliation. Due on due Goal PHQ-9. Due on du e Goal Zoster vaccine ( 1st). Due on due Goal FIT-DNA. Due on due Goal OARS. Due on due Goal Creatinine. Due on due Goal DIAL PAINTER Paperwork. Due on due Goal AST (SGOT). Due on due Goal RUBY ON RAILS ENGINEER Scanned. Due on due Goal Tobacco Use. Due on due Goal Unhealthy drug u se screening. Due on due Goal PHQ-9. Due on du e Goal FIT-DNA. Due on due Goal Review Allergy L ist. Due on due Goal UDT. Due on due Goal Medication Recon ciliation. Due on due Goal Zoster vaccine ( 1st). Due on due Goal FIT. Due on due Goal CT-Colonography. Due on due Goal Height. Due on d ue Goal Update Social Hi story. Due on due Goal Lipid panel. Due on due Goal Weight. Due on d ue Goal Hepatitis C scre ening. Due on due Goal ALT (SGPT). Due on due Goal Order Annual PT. Due on due Goal Creatinine. Due on due Goal OARS. Due on due Goal DIAL PAINTER Paperwork. Due on due Goal ALT (SGPT). Due on due Goal RUBY ON RAILS ENGINEER Scanned. Due on due Goal AST (SGOT). Due on due Goal UDT. Due on due Goal Order Annual PT. Due on due Goal Update Social Hi story. Due on due Goal FIT. Due on due Goal Lipid panel. Due on due Goal Height. Due on d ue Goal CT-Colonography. Due on due Goal FIT-DNA. Due on due Goal Hepatitis C scre ening. Due on due Goal Medication Recon ciliation. Due on due Goal Unhealthy drug u se screening. Due on due Goal Weight. Due on d ue Goal Zoster vaccine ( ). Due on due Goal Tobacco Use. Due on due Goal PHQ-9. Due on du e Goal Review Allergy L ist. Due on due Goal Creatinine. Due on due Goal Lipid panel. Due on due Goal Unhealthy drug u se screening. Due on due Goal FIT. Due on due Goal DIAL PAINTER Paperwork. Due on due Goal UDT. Due on due Goal Hepatitis C scre ening. Due on due Goal FIT-DNA. Due on due Goal PHQ-9. Due on du e Goal Update Social Hi story. Due on due Goal Review Allergy L ist. Due on due Goal CT-Colonography. Due on due Goal Zoster vaccine ( 1st). Due on due Goal AST (SGOT). Due on due Goal RUBY ON RAILS ENGINEER Scanned. Due on due Goal OARS. Due on due Goal Weight. Due on d ue Goal Medication Recon ciliation. Due on due Goal Order Annual PT. Due on due Goal Height. Due on d ue Goal ALT (SGPT). Due on due Goal Tobacco Use. Due on due Goal ALT (SGPT). Due on due Goal DIAL PAINTER Paperwork. Due on due Goal Creatinine. Due on due Goal Height. Due on d ue Goal PHQ-9. Due on du e Goal Tobacco Use. Due on due Goal Medication Recon ciliation. Due on due Goal UDT. Due on due Goal RUBY ON RAILS ENGINEER Scanned. Due on due Goal Update Social Hi story. Due on due Goal OARS. Due on due Goal Review Allergy L ist. Due on due Goal AST (SGOT). Due on due Goal Order Annual PT. Due on due Goal Weight. Due on d ue Goal UDT. Due on due Goal ALT (SGPT). Due on due Goal Order Annual PT. Due on due Goal Medication Recon ciliation. Due on due Goal Height. Due on d ue Goal Update Social Hi story. Due on due Goal Review Allergy L ist. Due on due Goal DIAL PAINTER Paperwork. Due on due Goal Creatinine. Due on due Goal Tobacco Use. Due on due Goal OARS. Due on due Goal PHQ-9. Due on du e Goal RUBY ON RAILS ENGINEER Scanned. Due on due Goal Weight. Due on d ue Goal AST (SGOT). Due on due Goal Order Annual PT. Due on due Goal Review Allergy L ist. Due on due Goal RUBY ON RAILS ENGINEER Scanned. Due on due Goal Medication Recon ciliation. Due on due Goal UDT. Due on due Goal Creatinine. Due on due Goal PHQ-9. Due on du e Goal Tobacco Use. Due on due Goal ALT (SGPT). Due on due Goal DIAL PAINTER Paperwork. Due on due Goal Update Social Hi story. Due on due Goal AST (SGOT). Due on due Goal Weight. Due on d ue Goal Height. Due on d ue Goal OARS. Due on due Goal Update Social Hi story. Due on due Goal Tobacco Use. Due on due Goal Review Allergy L ist. Due on due Goal OARS. Due on due Goal Height. Due on d ue Goal Order Annual PT. Due on due Goal AST (SGOT). Due on due Goal Medication Recon ciliation. Due on due Goal Creatinine. Due on due Goal Weight. Due on d ue Goal UDT. Due on due Goal DIAL PAINTER Paperwork. Due on due Goal ALT (SGPT). Due on due Goal PHQ-9. Due on du e Goal RUBY ON RAILS ENGINEER Scanned. Due on due Goal DIAL PAINTER Paperwork. Due on due Goal Order Annual PT. Due on due Goal Height. Due on d ue Goal ALT (SGPT). Due on due Goal RUBY ON RAILS ENGINEER Scanned. Due on due Goal Tobacco Use. Due on due Goal UDT. Due on due Goal OARS. Due on due Goal Weight. Due on d ue Goal Review Allergy L ist. Due on due Goal AST (SGOT). Due on due Goal Creatinine. Due on due Goal Update Social Hi story. Due on due Goal PHQ-9. Due on du e Goal Medication Recon ciliation. Due on due Goal DIAL PAINTER Paperwork. Due on due Goal ALT (SGPT). Due on due Goal OARS. Due on due Goal AST (SGOT). Due on due Goal Review Allergy L ist. Due on due Goal Creatinine. Due on due Goal Weight. Due on d ue Goal UDT. Due on due Goal Height. Due on d ue Goal Tobacco Use. Due on due Goal Order Annual PT. Due on due Goal RUBY ON RAILS ENGINEER Scanned. Due on due Goal Update Social Hi story. Due on due Goal PHQ-9. Due on du e Goal Medication Recon ciliation. Due on due Goal Order Annual PT. Due on due Goal OARS. Due on due Goal Creatinine. Due on due Goal AST (SGOT). Due on due Goal Medication Recon ciliation. Due on due Goal Tobacco Use. Due on due Goal ALT (SGPT). Due on due Goal DIAL PAINTER Paperwork. Due on due Goal RUBY ON RAILS ENGINEER Scanned. Due on due Goal Review Allergy L ist. Due on due Goal Update Social Hi story. Due on due Goal PHQ-9. Due on du e Goal Weight. Due on d ue Goal Height. Due on d ue Goal UDT. Due on due Goal RUBY ON RAILS ENGINEER Scanned. Due on due Goal Weight. Due on d ue Goal Tobacco Use. Due on due Goal DIAL PAINTER Paperwork. Due on due Goal OARS. Due on due Goal Height. Due on d ue Goal AST (SGOT). Due on due Goal Review Allergy L ist. Due on due Goal Creatinine. Due on due Goal Order Annual PT. Due on due Goal ALT (SGPT). Due on due Goal UDT. Due on due Goal PHQ-9. Due on du e Goal Medication Recon ciliation. Due on due Goal Update Social Hi story. Due on due Goal ALT (SGPT). Due on due Goal DIAL PAINTER Paperwork. Due on due Goal UDT. Due on due Goal Medication Recon ciliation. Due on due Goal Review Allergy L ist. Due on due Goal RUBY ON RAILS ENGINEER Scanned. Due on due Goal Creatinine. Due on due Goal PHQ-9. Due on du e Goal Height. Due on d ue Goal Update Social Hi story. Due on due Goal AST (SGOT). Due on due Goal OARS. Due on due Goal Order Annual PT. Due on due Goal Weight. Due on d ue Goal Tobacco Use. Due on due Goal Order Annual PT. Due on due Goal Tobacco Use. Due on due Goal AST (SGOT). Due on due Goal UDT. Due on due Goal ALT (SGPT). Due on due Goal RUBY ON RAILS ENGINEER Scanned. Due on due Goal PHQ-9. Due on du e Goal Creatinine. Due on due Goal OARS. Due on due Goal Medication Recon ciliation. Due on due Goal Update Social Hi story. Due on due Goal DIAL PAINTER Paperwork. Due on due Goal Height. Due on d ue Goal Review Allergy L ist. Due on due Goal Weight. Due on d ue Goal Height. Due on d ue Goal Tobacco Use. Due on due Goal ALT (SGPT). Due on due Goal Order Annual PT. Due on due Goal DIAL PAINTER Paperwork. Due on due Goal UDT. Due on due Goal OARS. Due on due Goal RUBY ON RAILS ENGINEER Scanned. Due on due Goal Medication Recon ciliation. Due on due Goal Weight. Due on d ue Goal AST (SGOT). Due on due Goal Update Social Hi story. Due on due Goal PHQ-9. Due on du e Goal Creatinine. Due on due Goal Review Allergy L ist. Due on due Goal Creatinine. Due on due Goal Order Annual PT. Due on due Goal AST (SGOT). Due on due Goal Update Social Hi story. Due on due Goal Medication Recon ciliation. Due on due Goal Tobacco Use. Due on due Goal ALT (SGPT). Due on due Goal UDT. Due on due Goal Height. Due on d ue Goal RUBY ON RAILS ENGINEER Scanned. Due on due Goal DIAL PAINTER Paperwork. Due on due Goal Review Allergy L ist. Due on due Goal OARS. Due on due Goal Weight. Due on d ue Goal PHQ-9. Due on du e Goal Review Allergy L ist. Due on due Goal Weight. Due on d ue Goal Height. Due on d ue Goal Order Annual PT. Due on due Goal Creatinine. Due on due Goal AST (SGOT). Due on due Goal Tobacco Use. Due on due Goal Medication Recon ciliation. Due on due Goal OARS. Due on due Goal DIAL PAINTER Paperwork. Due on due Goal PHQ-9. Due on du e Goal UDT. Due on due Goal RUBY ON RAILS ENGINEER Scanned. Due on 021 due Goal Update Social Hi story. Due on due Goal ALT (SGPT). Due on 21 due Appointment Jose De Jesus Reynoso BOOKED Appointment Jose De Jesus Reynoso BOOKED Future Order: Radiology Order MR I Lumbar Spine W/O Dye (MRILSWO), Ordered on: Ordered Future Order: Lab Order URINE DR AMATO CONFIRMATION ([id number]), Collected on: , Sent on: Sent Future Order: Lab Order URINE DR AMATO SCREEN ([id number]), Collected on: , Sent on: Sent History Of Present Illness Encounter Date Complaint History Of Prese nt Illness Comments: Silvestre van is a 59 y/o male who presents for follow up and medication refill in the setting of chronic neck pain with radiation into the L arm, low back pain with radiation into the anterior legs, and R knee pain. Pain has been stable this month. Notes the burning in the legs is normal. He states he has been walking daily for an hour. Endorses veering to the R side at times and slight L foot drag.Reports current medication regimen provides 75% relief and allows for increased functionality. Continues to utilize Percocet 5-325mg TID with significant benefit. Denies OIC or other side effects from current medication regimen. No other concerns today. Back Pain Duration: chroni c. The problem is stable. It occurs persistently. The client describes the pain as an ache, burning and sharp. Symptoms are aggravated by sitting, bending forward, bending backwards, reaching overhead, housework and social activities. Symptoms are relieved by exercise, pain meds/drugs, standing and walking. Additional information: Rates low back pain as 6/10, leg pain as 6/10, and R knee pain as 6/10. Comments: Silvestre van is a 59 y/o male who presents via [facility] for virtual follow up and medication refill in the setting of chronic neck pain with radiation into the L arm, low back pain with radiation into the anterior legs, and R knee pain. Pain has been fluctuating, but overall stable, this month. Notes some crunching in the neck when he turns.Reports current medication regimen provides 75% relief and allows for increased functionality. Continues to utilize Percocet 5-325mg TID with significant benefit. Denies OIC or other side effects from current medication regimen. No other concerns today. Back Pain Severity level i s 6. Duration: chronic. The problem is stable. It occurs persistently. Location of pain is lower back and neck. Symptoms are relieved by pain meds/drugs. Comments: Silvestre van is a 59 y/o male who presents via [facility] for virtual follow up and medication refill in the setting of chronic neck pain with radiation into the L arm, low back pain with radiation into the anterior legs, and R knee pain. Pain has been stable this month.Believes the shingles may be chronic now. Have been following up with his PCP for further care.Reports current medication regimen provides 70% relief and allows for increased functionality. Continues to utilize Percocet 5-325mg TID with significant benefit. Denies OIC or other side effects from current medication regimen. No other concerns today. Back Pain Severity level i s 6. Duration: chronic. The problem is stable. It occurs persistently. Symptoms are relieved by pain meds/drugs. Back Pain Severity level i s 6. Duration: chronic. The problem is fluctuating. It occurs persistently. Symptoms are aggravated by bending, lifting, sitting, twisting, rising from sitting position and prolonged positioning. Symptoms are relieved by massage, pain meds/drugs, stretching, rest and walking. Comments: Silvestre van is a 59 y/o male who presents for follow up and medication refill in the setting of chronic neck pain with radiation into the L arm, low back pain with radiation into the anterior legs, and R knee pain. Pain has been fluctuating this month. Notes the low back and neuropathy in the BLE has been the most bothersome.Had been taken to the ED recently via the ambulance after fainting at a restaurant. Notes he was on an antiviral medication and Prednisone for the shingles. Believes the Prednisone elevated his blood pressure, thus, causing him to faint. He states the shingles occurred underneath the R armpit with the sores now being resolved. Reports he also contracted COVID-19 immediately after the sores improved.Reports current medication regimen provides 70% relief and allows for increased functionality. Continues to utilize Percocet 5-325mg TID with significant benefit. Denies OIC or other side effects from current medication regimen. No other concerns today. Back Pain Severity level i s 6. Duration: chronic. The problem is fluctuating. It occurs persistently. Symptoms are relieved by pain meds/drugs. Comments: Silvestre van is a 59 y/o male who presents via [employer] for virtual follow up and medication refill in the setting of chronic neck pain with radiation into the L arm, low back pain with radiation into the anterior legs, and R knee pain. Pain has been fluctuating this month. Notes the occasional burning and jolt in the legs.Of note, patient currently has shingles.Reports current medication regimen provides 70% relief and allows for increased functionality. Continues to utilize Percocet 5-325mg TID with significant benefit. Denies OIC or other side effects from current medication regimen. No other concerns today. Comments: Silvester van is a 59 y/o male who presents via [employer] for virtual follow up and medication refill in the setting of chronic neck pain with radiation into the L arm, low back pain with radiation into the anterior legs, and R knee pain. Pain has been stable this month. Denies any new symptoms or concerns.Of note, patient will be consulting with his PCP next week for a umbilical hernia.Reports current medication regimen provides 70% relief and allows for increased functionality. Continues to utilize Percocet 5-325mg TID with significant benefit. Denies OIC or other side effects from current medication regimen. No other concerns today. Back Pain Severity level i s 6. Duration: chronic. The problem is stable. It occurs persistently. Symptoms are relieved by pain meds/drugs. Back Pain Severity level i s 5. Duration: chronic. The problem is stable. It occurs persistently. The client describes the pain as an ache, burning, sharp and tingling. Symptoms are aggravated by bending, lifting, twisting, stairs and prolonged positioning. Symptoms are relieved by ice, pain meds/drugs, stretching, walking and changing positions. Comments: Silvestre van is a 58 y/o male who presents for follow up and medication refill in the setting of chronic neck pain with radiation into the L arm, low back pain with radiation into the anterior legs, and R knee pain. Pain has been stable this month. Denies any new symptoms or concerns.Of note, patient has been experiencing severe seasonal allergies. He states the allergies causes migraines and nausea which makes it difficult to keep food and medication down. Notes the Zofran 4mg is only effective 75% of the time.Reports current medication regimen provides 70% relief and allows for increased functionality. Continues to utilize Percocet 5-325mg TID with significant benefit. Denies OIC or other side effects from current medication regimen. No other concerns today. Comments: Silvestre van is a 58 y/o male who presents via [facility] for virtual follow up and medication refill in the setting of chronic neck pain with radiation into the L arm, low back pain with radiation into the anterior legs, and R knee pain. Pain has been stable this month.S/p L L4-L5 TFESI and R L3-L4 TFESI on 11/05/[address] Souza. Have seen an improvement in pain in the inner L thigh with radiation into the groin. Denies experiencing any relief for the low back. Overall, the injections only helped with the leg/thigh pain. Would like to rediscuss PT at next OV.Of note, patient's parents are still continuing treatment with [facility] (mother; breast cancer and father; colon cancer). He states his father may have also developed AFIB too and will be completing a workup soon.Reports current medication regimen provides 70% relief and allows for increased functionality. Continues to utilize Percocet 5-325mg TID with significant benefit. Denies OIC or other side effects from current medication regimen. No other concerns today. Back Pain Severity level i s 6. Duration: chronic. The problem is stable. It occurs persistently. Symptoms are relieved by pain meds/drugs. Comments: Silvestre van is a 58 y/o male who presents for follow up and medication refill in the setting of chronic neck pain with radiation into the L arm, low back pain with radiation into the anterior legs, and R knee pain. Pain has been worse this month.Lower back pain and pain radiates into anterior legs but now pain radiates into left groin as well. Also notes previously pain was radiating into lateral thing, but now only into anterior thigh. He states S/p Left L4-L5 TFESI and Right L3-L4 TFESI completed on 11/05/23, no improved in leg pain, but noticed some improvement in lower back. (Original order, was L5/S1)Cash, both parents dx'd with cancer, receiving treatment at [facility]. Mother (Breast cancer); Father (colon cancer). Uncle suddenly 2 weeks ago.Reports current medication regimen provides 65% relief and allows for increased functionality. Continues to utilize Percocet 5-325mg TID with significant benefit. Denies OIC or other side effects from current medication regimen. No other concerns today. Back pain Severity level i s 7. Duration: chronic. The problem is worsening. It occurs persistently. Location of pain is lower back and L leg. Symptoms are relieved by pain meds/drugs. lumbago Patient is a 58 year old male with complaints of complex chronic lower back pain for over 5 years. Pain has been increasing with more intense radicular symptoms the past few months. He is planning on a injection next week and a MRI . Patient's pain in his back starts on the left lower back and he reports burning into the left leg. He is waking up in the night and has to walk around to try and reduce the pain.. He has occasional intense jolts of pain during the day. He is doing daily stretching in bed, walking. wall sits for strength and cold packs. some back rest. Patietn goal is to perform his daily activity with less limitation. he feels weakness on the elft side, sit to stnad and stairs aso hx of meniscus tear nonon surgivcal light touch to the elt foot is tinglgin ' gneral weakenss left leg 4-qaud both weak inactive right piriformsi si tightnnerve tension tightnes Comments: Silvestre van is a 58 y/o male who presents for follow up and medication refill in the setting of chronic neck pain with radiation into the L arm, low back pain with radiation into the anterior legs, and R knee pain. Pain has been fluctuating this month.Ongoing low back pain with radiation into the lateral aspect of the L leg has been the most bothersome. Continues to experience jolting in the low back which causes him to wake up in the middle of the night. Notes the R leg tends to tingling while the L leg gonzalez consistently. Also reports occasional burning in the toes on the L foot.Reports current medication regimen provides 65% relief and allows for increased functionality. Continues to utilize Percocet 5-325mg TID with significant benefit. Denies OIC or other side effects from current medication regimen. No other concerns today. Back Pain Severity level i s 4. Duration: chronic. The problem is fluctuating. It occurs persistently. Symptoms are aggravated by bending, lifting, sitting, twisting, rising from sitting position and prolonged positioning. Symptoms are relieved by pain meds/drugs, walking and changing positions. Comments: Silvestre van is a 58 y/o male who presents via [facility] for virtual follow up and medication refill in the setting of chronic neck pain with radiation into the L arm, low back pain with radiation into the anterior legs, and R knee pain. Pain has been stable this month. States that he has occasional jolts in his low back which he attributes to carrying around his niece and nephew over the holidays. He continues to experience R knee pain and is hoping to do PT to prolong the need for surgery. He plans to f/u with his PCP in September to discuss this.Reports that L C6 Nerve Root injection on 07/15/23 with [facility] continues to provide significant relief, especially in his left hand. Reports current medication regimen provides 75% relief and allows for increased functionality. Continues to utilize Percocet 5-325mg TID with significant benefit. Denies OIC or other side effects from current medication regimen. No other concerns today. Back pain Severity level i s 6. Duration: chronic. The problem is stable. Location of pain is lower back and legs. Back Pain Severity level i s 7. Duration: chronic. The problem is fluctuating. It occurs persistently. Symptoms are relieved by pain meds/drugs. Comments: Silvestre van is a 58 y/o male who presents via [facility] for virtual follow up and medication refill in the setting of chronic neck pain with radiation into the L arm, low back pain with radiation into the anterior legs, and R knee pain. Pain has been fluctuating this month. Notes he had tweaked his back from putting up [place] decorations. S/p L C6 Nerve Root injection on 07/15/23 with [facility] provided significant relief. Have experienced a significant improvement in pain, especially with the pain radiating down the L arm. Notes they had administered the injection in the correct area this time. Reports current medication regimen provides 70% relief and allows for increased functionality. Continues to utilize Percocet 5-325mg TID with significant benefit. Denies OIC or other side effects from current medication regimen. No other concerns today. Back Pain Severity level i s 5. Duration: chronic. The problem is stable. It occurs persistently. Symptoms are relieved by pain meds/drugs. Comments: Silvestre van is a 58 y/o male who presents via [facility] for virtual follow up and medication refill in the setting of chronic low back pain with radiation into the anterior legs and R knee pain. Pain has been stable this month. Denies any new symptoms or changes. Have been following with Dr. Casey Leslie MD through [facility] for management of his neck pain with numbness and tingling down the L arm. Will be receiving a nerve root injection with [facility] next week.Reports current medication regimen provides 75% relief and allows for increased functionality. Continues to utilize Percocet 5-325mg TID with significant benefit. Denies OIC or other side effects from current medication regimen. No other concerns today. Back Pain Severity level i s 5. Duration: chronic. The problem is stable. It occurs persistently. The client describes the pain as an ache, burning and sharp. Symptoms are aggravated by bending, lifting, twisting, rising from sitting position, stairs and prolonged positioning. Symptoms are relieved by pain meds/drugs, stretching, rest, walking and changing positions. Comments: Silvestre van is a 58 y/o male who presents for follow up and medication refill in the setting of chronic low back pain with radiation into the anterior legs and R knee pain. Pain has been stable this month. Denies any new symptoms or changes. Continues to complain of neck pain with numbness and tingling down the L arm. Notes he has been experiencing an ongoing migraine the last few days with associated hot flashes. Had consulted with Dr. Casey Leslie MD through [facility] and was told the C7-T1 IESI he received on 04/03/23 with [facility] were not the right levels. Will be following up with Dr. Leslie again for a nerve block.Reports current medication regimen provides 70% relief and allows for increased functionality. Continues to utilize Percocet 5-325mg TID with significant benefit. Denies OIC or other side effects from current medication regimen. No other concerns today. Comments: Silvestre van is a 58 y/o male who presents via [facility] for virtual follow up and medication refill in the setting of chronic low back pain with radiation into the anterior legs and R knee pain. Pain has been stable this month. Denies any new symptoms or changes. Continues to complain of ongoing neck pain with numbness and tingling down the L arm. Had received a C7-T1 IESI on 04/03/23 through [employer] that did not provide much relief. He has been referred to Dr. Leslie from [facility] regarding his neck pain. Has completed 2 sessions of PT at [facility], not finding much relief so far. Has been walking 5-6 miles each morning.Reports current medication regimen provides 75% relief and allows for increased functionality. Continues to utilize Percocet 5-325mg max 3/day with significant benefit. Presents 1 day short with medication today. Denies OIC or other side effects from current medication regimen. No other concerns today. Back pain Severity level i s 5. Duration: chronic. The problem is stable. It occurs persistently. Comments: Silvestre van is a 58 y/o male who presents via [facility] for virtual follow up and medication refill in the setting of chronic low back pain with radiation into the anterior legs and R knee pain. Pain has been stable this month. Denies any new symptoms or changes. Continues to complain of ongoing neck pain with numbness and tingling down the L arm. Had received a C7-T1 IESI on 04/03/23 through [employer] with moderate relief at this time. He states the radiation to hands continues to persists and he still cannot lift anything without pain. Hopes the injection will take effect in the next few weeks. Plans to start PT soon.Reports current medication regimen provides 75% relief and allows for increased functionality. Continues to utilize Percocet 5-325mg with significant benefit. Denies OIC or other side effects from current medication regimen. No other concerns today. Back Pain Severity level i s 6. The problem is stable. It occurs persistently. Symptoms are relieved by pain meds/drugs. Back Pain Severity level i s 6. Duration: chronic. The problem is stable. It occurs persistently. Symptoms are relieved by pain meds/drugs. Comments: Silvestre van is a 58 y/o male who presents via [facility] for virtual follow up and medication refill in the setting of chronic low back pain with radiation into the anterior legs and R knee pain. Pain has been stable this month. He states his back pain has improved since being on Prednisone. Patient complains of ongoing neck pain with numbness and tingling down the L arm. Had initially believed it was just L arm pain but once he received updated imaging, results had showed impinging at the C6-C7 levels. He states he had prior neck surgery 20 years ago due to bone spurs and the pain feels similar to the pain then. Notes he will be getting an injection through [employer] soon. Reports current medication regimen provides 75% relief and allows for increased functionality. Continues to utilize Percocet 5-325mg with significant benefit. Denies OIC or other side effects from current medication regimen. No other concerns today. Comments: Silvestre van is a 58 y/o male who presents for follow up and medication refill in the setting of chronic widespread pain, most prominent in the low back and R knee. Pain has been worse this month. Low back pain with occasional jolting in the anterior legs continues to be the most bothersome. Denies any weakness. Believes the pain is returning to the pain prior to the fusion. Would like to hold off on anything for another month. Reports current medication regimen provides 75% relief and allows for increased functionality. Rates his pain as 8/10 without medications and 6/10 with medications. Continues to utilize Percocet 5-325mg with significant benefit. Denies OIC or other side effects from current medication regimen. No other concerns today. Widespread pain Severity level i s 6. Duration: chronic. Location of the pain is lower back and legs. The client describes it as achy, burning and tingling. It occurs persistently. The problem is worsening. Symptom is aggravated by bending, walking upstairs, walking downstairs, prolonged positioning, lifting and twisting. Relieving factors include walking, Rx Meds and changing positions. Pertinent negatives include diarrhea, fatigue, fever and incontinence (urinary). Widespread pain Severity level i s 5. Location of the pain is lower back and legs. The client describes it as sharp, achy, burning and tingling. It occurs persistently. The problem is worsening. Symptom is aggravated by bending, running, prolonged positioning and housework. Relieving factors include walking, heat, cold, Rx Meds, changing positions and lying down. Comments: Silvestre van is a 58 y/o male who presents for follow up and medication refill in the setting of chronic widespread pain, most prominent in the low back and R knee. Pain has been worse this month. Has been doing increased activities which has contributed to the worsening of his pain. Reports current medication regimen provides significant relief and allows for increased functionality. Rates his pain as 8/10 without medications and 5/10 with medications. Continues to utilize Percocet 5-325mg with significant benefit. Denies OIC or other side effects from current medication regimen. No other concerns today. Widespread pain Severity level i s 7. Duration: chronic. It occurs persistently. The problem is fluctuating. Relieving factors include Rx Meds. Comments: Silvestre van is a 57 y/o male who presents via [facility] for virtual follow up and medication refill in the setting of chronic widespread pain, most prominent in the low back and R knee. Pain has been fluctuating this month. He states he has tendonitis in the L arm which was aggravated after pulling his suitcase wrong. Believes he needs some PT for improvement of pain. Will plan to follow up with his PCP soon for the ongoing issue. Reports current medication regimen provides 75% relief and allows for increased functionality. Continues to utilize Percocet 5-325mg with significant benefit. Denies OIC or other side effects from current medication regimen. No other concerns today. Comments: Silvestre van is a 57 y/o male who presents via [employer] for virtual follow up and medication refill in the setting of chronic widespread pain, most prominent in the low back and R knee. Pain has been stable this month. Denies any new symptoms or changes. Reports current medication regimen provides 75% relief and allows for increased functionality. Continues to utilize Percocet 5-325mg with significant benefit. Denies OIC or other side effects from current medication regimen. No other concerns today. Widespread pain Severity level i s 6. Duration: chronic. It occurs persistently. The problem is stable. Relieving factors include Rx Meds. Comments: Silvestre van is a 57 y/o male who presents via [facility] for virtual follow up and medication refill in the setting of chronic widespread pain, most prominent in the low back and R knee. Pain has been stable this month. Denies any new symptoms or changes. Of note, patient states he was recently promoted at his job. Notes the amount of traveling will be the same as before but he is not required to work events. Believes the decrease in events will help with his chronic pain.Reports current medication regimen provides 75% relief and allows for increased functionality. Continues to utilize Percocet 5-325mg with significant benefit. Denies OIC or other side effects from current medication regimen. No other concerns today. Widespread pain Severity level i s 6. Duration: chronic. Location of the pain is lower back and legs. It occurs persistently. The problem is stable. Relieving factors include Rx Meds. Widespread pain Severity level i s 5. Duration: chronic. Location of the pain is lower back, left shoulder and legs. The client describes it as sharp, achy, burning and tingling. It occurs persistently. The problem is fluctuating. Symptom is aggravated by bending, walking upstairs, walking downstairs, lifting and twisting. Relieving factors include standing, walking, stretching, rest and Rx Meds. Pertinent negatives include diarrhea, fatigue, fever and incontinence (urinary). Comments: Silvestre van is a 57 y/o male who presents for follow up and medication refill in the setting of chronic widespread pain, most prominent in the low back and R knee. Pain has been fluctuating this month. He states he tested positive for COVID-19 about 3 weeks ago. Notes he was in [place] when he contracted the virus and have since stopped traveling for work. Reports current medication regimen provides 75% relief and allows for increased functionality. Rates his pain as 7/10 without medications and 5/10 with medications. Continues to utilize Percocet 5-325mg with significant benefit. Denies OIC or other side effects from current medication regimen. No other concerns today. Widespread pain Severity level i s 6. Duration: chronic. Location of the pain is lower back and legs. The client describes it as sharp, achy, burning and tingling. It occurs persistently. The problem is stable. Symptom is aggravated by bending, walking upstairs, walking downstairs, running, sitting, standing, walking, prolonged positioning, housework and movement. Relieving factors include rest and Rx Meds. Comments: Silvestre van is a 57 y/o male who presents via [employer] for virtual follow up and medication refill in the setting of chronic widespread pain, most prominent in the low back and R knee. Pain has been stable this month. He states he has been experiencing pain d/t the torn meniscus in the knee and will plan to follow up with a specialist regarding the issue. Herrera any falls. Of note, patient continues to travel for his work. Hopes to travel less by the time October comes around.Reports current medication regimen provides 75% relief and allows for increased functionality. Continues to utilize Percocet 5-325mg with significant benefit. Denies OIC or other side effects from current medication regimen. No other concerns today. Comments: Silvestre van is a 57 y/o male who presents via [employer] for virtual follow up and medication refill in the setting of chronic widespread pain, most prominent in the low back and R knee. Pain has been stable this month. Denies any new symptoms or changes.Will plan to follow up with neurology soon regarding his migraines. 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 Believes the recent traveling have made his pain worse at times. Hopes he will travel less by October. Reports current medication regimen provides 75% relief and allows for increased functionality. Continues to utilize Percocet 5-325mg with significant benefit. Requests to stay at #90tabs in the case he travels and experiences worsening of pain. Denies OIC or other side effects from current medication regimen. No other concerns today. Widespread pain Severity level i s 6. Duration: chronic. Location of the pain is lower back and legs. The client describes it as sharp, achy, burning and tingling. It occurs persistently. The problem is stable. Symptom is aggravated by bending, walking upstairs, walking downstairs, running, sitting, standing, walking, prolonged positioning, movement and housework. Relieving factors include rest and Rx Meds. Widespread pain Severity level i s 6. Duration: chronic. Location of the pain is lower back and legs. The client describes it as sharp, achy, burning and tingling. It occurs persistently. The problem is stable. Symptom is aggravated by bending, walking upstairs, walking downstairs, running, sitting, standing, walking, prolonged positioning, housework and movement. Relieving factors include rest and Rx Meds. Pertinent negatives include diarrhea, fatigue, fever and incontinence (urinary). Comments: Silvestre van is a 57 y/o male who presents via [facility] for virtual follow up and medication refill in the setting of chronic widespread pain, most prominent in the low back and R knee. Pain has been stable this month. Denies any new symptoms or changes.Reports current medication regimen provides 75% relief and allows for increased functionality. Continues to utilize Percocet 5-325mg with significant benefit. Requests to stay at #90tabs in the case he travels and experiencing worsening of pain. Denies OIC or other side effects from current medication regimen. No other concerns today. Comments: Silvestre van is a 57 y/o male who presents for follow up and medication refill in the setting of chronic widespread pain, most prominent in the low back and R knee. Pain has been fluctuating this month. He has been experiencing a burning sensation in his BL legs d/t sleeping on the floor of the [place]. Since he has just recently returned home, sleep have been slightly difficult. Of note, patient had a busy month with traveling. Reports current medication regimen provides 75% relief and allows for increased functionality. He states he had to self-decrease his medication d/t the airline holding his baggage. Denies OIC or other side effects from current medication regimen. No other concerns today. Widespread pain Severity level i s 7. Duration: chronic. Location of the pain is lower back and legs. The client describes it as sharp, achy and burning. It occurs persistently. The problem is stable. Symptom is aggravated by bending, sitting, prolonged positioning, housework and lifting. Relieving factors include walking, stretching, rest, Rx Meds and changing positions. Pertinent negatives include diarrhea, fatigue, fever and incontinence (urinary). Widespread pain Severity level i s 6. Duration: chronic. Location of the pain is lower back, right knee and BLE. The client describes it as sharp, burning, tingling and numbness. Symptom is aggravated by bending, housework, prolonged positioning, twisting and. Relieving factors include standing, walking, stretching, rest, Rx Meds and changing position. Pertinent negatives include diarrhea, fatigue, fever and incontinence (urinary). Comments: Silvestre van is a 57 y/o male who presents via [facility] for virtual follow up and medication refill in the setting of chronic widespread pain that is most bothersome in his low back and right knee. Pain has been stable since last visit. GUZMAN has improved over the past month. Notes decrease in frequency. Pt continues to f/u with neuro. Pt has been unable to follow up with PT.Medication provides moderate relief and allows for increased functionality, such as allowing him to continue to travel. Denies OIC or other side effects from current medication regimen. No other concerns today. Widespread pain Severity level i s 7. Duration: chronic. Location of the pain is lower back, right knee and BL legs. The client describes it as sharp, achy and burning. It occurs persistently. The problem is worsening. Symptom is aggravated by bending, prolonged positioning, lifting and housework. Relieving factors include standing, walking, heat, Rx Meds, changing positions, physical therapy and lying down. Pertinent negatives include diarrhea, fatigue, fever and incontinence (urinary). Comments: Silvestre van is a 57 y/o male who presents via [facility] for virtual follow up and medication refill in the setting of chronic widespread pain that is most bothersome in his low back and right knee. Pain has been stable since last visit. He reports he will be changing jobs after 04/23/22 which he hopes will decrease his stress and pain levels. He notes that he would be interested in another round of PT at [facility] after he finishes traveling. Medication provides moderate relief and allows for increased functionality, such as allowing him to continue to travel. He was able to decrease to #1 tab of Percocet 5-325mg per day, but has increased to BID intermittently with recent travels and increased activity. Denies OIC or other side effects from current medication regimen. No other concerns today. Widespread pain Severity level i s 6. Duration: chronic. Location of the pain is lower back and right knee. The client describes it as sharp, achy, burning and numb. It occurs persistently. The problem is stable. Symptom is aggravated by bending, sitting, supine, lifting, prolonged positions and twisting. Relieving factors include supine, walking, stretching, Rx Meds, changing positions and PT. Comments: Silvestre van presents for a virtual follow up and medication refill. Patient c/o chronic widespread pain that is most bothersome in his low back and right knee. Pain has been stable since last visit. Notes he had a piece of luggage that fell on him while traveling and he sprained his wrist. States he plans to manage conservatively. Medication provides moderate relief and allows for increased functionality, such as allowing him to continue to travel. He was able to decrease to #1 tab of Percocet 5-325mg per day, but has increased to BID with recent travels and increased activity. He would like to pursue PT once he returns home. Denies side effects from current medication regimen. No other concerns today. Comments: Silvestre van is a 56 y/o male seen for follow up and medication refill in the setting of chronic low back pain and left leg pain. He reports his pain is worse since last OV. He continues to report burning leg pain, worse with recent travel for work.He states he is currently stressed as he is dealing with illnessReports current medication regimen provides 75% pain relief and allows for increased functionality. Continues to benefit from his current medication. Denies OIC or other side effects from current medication regimen. reports occasionally he needs , 3 tabs/day instead of 2 tabs a day due to travel. No other concerns Widespread pain Severity level i s mild-moderate. Location of the pain is lower back and left leg. The client describes it as achy, burning and hot. It occurs persistently. The problem is worsening. Symptom is aggravated by bending, sitting, standing and prolonged positioning. Relieving factors include rest, bath/shower and Rx Meds. low back pain (comments) Jose De Jesus is a 56 y/o male, meeting with us today via [facility] for virtual follow up and medication refill in the setting of chronic low back pain. He reports his pain is stable since last OV. He continues to report burning leg pain, primarily at night which prevents him from sleeping.He states he is currently stressed as he is dealing with many family member's health issues. Reports current medication regimen provides 75% pain relief and allows for increased functionality. Continues to benefit from his current medication. Denies OIC or other side effects from current medication regimen. No other concerns. low back pain Severity level i s 6. Duration: chronic. The problem is stable. It occurs persistently. Location of pain is lower back, legs and left hip.The patient describes the pain as an ache, burning, sharp and tingling. Symptoms are aggravated by ascending stairs, bending, descending stairs, lifting, sitting, standing, twisting, housework and prolonged positioning. Symptoms are relieved by lying down, pain meds/drugs, stretching, changing positions and walking. low back pain Severity level i s 6. Duration: chronic. The problem is stable. It occurs persistently. Location of pain is legs. Pain is radiated to the R knee.The patient describes the pain as an ache, burning, sharp and tingling. Symptoms are aggravated by ascending stairs, bending, descending stairs, lifting, sitting, twisting, housework and prolonged positioning. Symptoms are relieved by lying down, pain meds/drugs, stretching, rest, sitting, changing positions and walking. low back pain (comments) Jose De Jesus is a 56 y/o male, meeting with us today via [employer] for virtual follow up and medication refill in the setting of chronic low back pain. He reports his pain is stable since last OV. He continues to report burning leg pain, primarily at night which prevents him from sleeping.He states he has been traveling often for business which is aggravating hjs low back pain somewhat but his pain medications help.At [facility] he stated he has started PT on his left arm d/t bone spurs.Reports current medication regimen provides 75% pain relief and allows for increased functionality. Continues to benefit from his current medication. Denies OIC or other side effects from current medication regimen. No other concerns. low back pain Severity level i s 7. Duration: chronic. The problem is stable. It occurs persistently. Location of pain is lower back and legs. Pain is radiated to the right knee.The patient describes the pain as an ache, burning, sharp and tingling. Symptoms are aggravated by bending, lifting, lying/rest, sitting, twisting, housework and prolonged positioning. Symptoms are relieved by lying down, pain meds/drugs, stretching, rest, changing positions, standing and walking. low back pain (comments) Jose De Jesus is a 56 y/o male, meeting with us today via [employer] for virtual follow up and medication refill in the setting of chronic low back pain. He reports his pain is stable since last OV. He continues to report burning leg pain, primarily at night and preventing him from sleeping.He states he has started PT on his left arm d/t bone spurs. 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 Reports current medication regimen provides 75% pain relief and allows for increased functionality. Continues to benefit from his current medication. Denies side effects from current medication regimen. His last UDT on 08/21/21 was (+) Diazepam and states that he takes this when flying as he is claustrophobic. low back pain (comments) Jose De Jesus is a 56 y/o male, meeting with us today for follow up and medication refill in the setting of chronic low back pain. He reports his pain is a little worse since last OV. He continues to report burning leg pain, primarily at night and preventing him from sleeping.Reports current medication regimen provides 75% pain relief and allows for increased functionality. Continues to benefit from his current medication. Denies side effects from current medication regimen. Pt got food poisoned (E. coli) after eating brussel sprouts during [employer]. C/o vomiting. No other concerns today. low back pain Severity level i s 6. Duration: chronic. The problem is stable. It occurs persistently. Location of pain is lower back and legs.The patient describes the pain as an ache, burning, sharp and tingling. Symptoms are aggravated by ascending stairs, bending, descending stairs, lifting, lying/rest, sitting, standing, twisting, housework and prolonged positioning. Symptoms are relieved by heat, ice, lying down, pain meds/drugs, physical therapy, stretching, walking and changing positions. low back pain (comments) Jose De Jesus is a 56 y/o male, meeting with us today via [employer] [facility] for follow up and medication refill in the setting of chronic low back pain. He reports his pain is a little worse since last OV, specifically in the last two weeks. He states his burning leg pain is the worst right now, primarily at night and preventing him from sleeping. He reports he is trying to walk more. He states his TENS Unit was of no benefit, even after trialling for 3 weeks. He reports he has some new pain in his shoulder with numbness in his left arm, and will be following up with his PCP. He states he will ask his PCP for a referral to PT at [facility] since he is comfortable with the group there. He believes the pain may be related to changing positions. He states he will be following up with his neurologist in 3 weeks. Reports current medication regimen provides 75% pain relief and allows for increased functionality. He reports he is taking #.5tabs 2x/day and #1 tab at bedtime. He states he has tried medical cannabis in the past for migraines without benefit and reports he would like to trial PT first. Denies side effects from current medication regimen. No other concerns today. low back pain Severity level i s 7. Duration: chronic. The problem is worsening. It occurs persistently. Location of pain is lower back, legs and R knee.The patient describes the pain as an ache, burning, sharp and tingling. Symptoms are aggravated by bending, lifting, lying/rest, sitting, standing, twisting, housework and prolonged positioning. Symptoms are relieved by changing positions and walking. low back pain Severity level i s 6. The problem is worsening. It occurs persistently. Location of pain is lower back and legs. Pain is radiated to the R knee.The patient describes the pain as an ache, burning and sharp. Symptoms are aggravated by ascending stairs, descending stairs, lifting, lying/rest, sitting, standing, twisting and prolonged positioning. Symptoms are relieved by pain meds/drugs, stretching, changing positions and walking. low back pain (comments) Jose De Jesus is a 56 y/o male, meeting with us today via [employer] Visit for follow up and medication refill in the setting of chronic low back pain. He reports his pain is a little worse since last OV as he has been traveling recently. He states his leg pain is the worst right now, primarily at night. He reports he is trying to walk more. He states he will be following up with his neurologist in 3 weeks. Reports current medication regimen provides 75% pain relief and allows for increased functionality. He reports he is taking #.5tabs 3x/day. Denies side effects from current medication regimen. No other concerns today. low back pain Severity level i s 6. Duration: chronic. The problem is stable. It occurs persistently. Location of pain is lower back and legs.The patient describes the pain as an ache, burning and sharp. Symptoms are aggravated by bending, lifting, lying/rest, sitting, standing and twisting. Symptoms are relieved by pain meds/drugs, stretching and changing positions. low back pain (comments) Jose De Jesus is meeting with us today via [employer] Visit for follow up and medication refill. Low back pain persists this month, but medication does help to some extent. He feels his pain is managed at this time. He reports tight muscle cramping around incision site from SCS trial on 12/29/20. He states that his back just archs. He has been using heat and stretching with some benefit. The cramping is most prevalent in the middle of the night but seems to be random. The spasm lasts about a minute, but the tightness persists for a while after and he has to lay down for relief. He is following up for a physical with his PCP next month. He is looking for an ironworker apprentice shop.Reports current medication regimen provides 75% pain relief and allows for increased functionality. Denies side effects from current medication regimen. Reports no benefit from TENS unit.No other concerns today. low back pain (comments) Jose De Jesus is here for a follow up and medications refill. Low back and leg pain persists this month, but medication does help to some extent. He feels his pain is fairly well managed at this time. The long car ride aggravates his burning leg pain.Reports current medication regimen provides 75% pain relief and allows for increased functionality. Denies side effects from current medication regimen. He received his TENS unit, but has not tried it yet. He has not felt quite right since stopping Cymbalta, he has persistent dull headaches (not usual migraines), gradually subsiding. Shorty after stopping Cymbalta, he experienced nausea and diarrhea, now resolved.No other concerns today. low back pain Severity level i s 6. Duration: chronic. The problem is stable. It occurs persistently. Location of pain is lower back and legs.The patient describes the pain as an ache, burning and sharp. Symptoms are aggravated by bending, lifting, sitting, twisting, housework and prolonged positioning. Symptoms are relieved by lying down, pain meds/drugs, stretching, rest, changing positions and walking. low back pain (comments) Jose De Jesus is meeting with us today via [employer] Visit for follow up and medication refill. Low back pain with radiation into the legs persists this month, but medication does help to some extent. He feels his pain is moderately managed at this time. He describes the leg pain as constant burning and shooting which is the most bothersome pain at this time.He continues to f/u with neurologists at [facility] for migraines.Reports current medication regimen provides 75% pain relief and allows for increased functionality. Reports side effects of dizziness, headaches, insomnia, and possible diarrhea with Cymbalta, so he stopped taking it. During this time her was taking #2tab percocet/day for elevated pain, now he is back to 1.5tab/day. He is no longer taking medical cannabis either.No other concerns today. low back pain Severity level i s 6. Duration: chronic. The problem is stable. It occurs persistently. Location of pain is lower back, legs and right knee.The patient describes the pain as burning, sharp and tingling. Symptoms are aggravated by ascending stairs, bending, descending stairs, lifting, lying/rest, twisting and prolonged positioning. Symptoms are relieved by rest, sitting, standing and walking. low back pain Severity level i s 5. Duration: chronic. The problem is stable. It occurs persistently. Location of pain is lower back. Pain is radiated to the left ankle, right ankle, left calf, right calf, left foot, right foot, left thigh and right thigh.The patient describes the pain as an ache, burning, numbness and tingling. Symptoms are aggravated by bending, lifting, lying/rest, running, sitting, standing, twisting, walking, prolonged positioning, housework and movement. Symptoms are relieved by pain meds/drugs, sitting, standing and walking. low back pain (comments) Patient here for f/u and medication refill. Lyrica helped some with pain in lower back and migraine headaches , but worsened his anxiety and caused extremity swelling . Hence he stopped Lyrica. Percocet still helps with pain , when taking 1/2 tab every 6 hrs as needed , he would like to continue taper. Reports current medication regimen provides 75% pain relief and allows increased functionality. Denies side effects from current medication regimen. No other concerns today. low back pain (comments) Jose De Jesus is meeting with us today via [employer] Visit for following up and medication refill. Low back pain persists this month, but medication does help to some extent. He feels his pain is moderately managed at this time. Right leg jolting stopped after the SCS lead pull, but persists in left. He also reports increased pain since lead pull. Her is consulting his Neurologist in February concerning the leg jolting/kicking. The jolting pain comes from the low back which caused his leg to kick involuntarily.Reports current medication regimen provides 75% pain relief and allows for increased functionality. Denies side effects from current medication regimen. Reports hives on arms after gabapentin use in the past. Inquires about alternate nerve pain medication.No other concerns today. low back pain Severity level i s 6. Duration: chronic. The problem is stable. It occurs persistently. Location of pain is lower back and legs.The patient describes the pain as an ache, burning, sharp and tingling. Symptoms are aggravated by ascending stairs, bending, descending stairs, lifting, lying/rest, sitting, twisting, prolonged positioning and housework. Symptoms are relieved by stretching, rest, changing positions, standing and walking. Low back pain (comments) Jose De Jesus is here for virtual follow-up and medication refills. Low back pain with radiation into bilateral legs persists this month, but medication does help to some extent. He is looking forward to SCS trial procedure on 12/29/[address] Cisneros. He inquires if he should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
--- OUTSIDE RECORDS SUMMARY | 2024-08-17 12:22 | XMS_ITS | Continuity of Care Document ---
Author Organization [facility] enter Address [address] [place] [id number] Phone Care Team Providers Care Supervisor Personnel Clerks Name Role Phone [facility] Unavailable Unava ilable Procedures Procedure Date INJ FORAMEN EPIDURAL L/S INJ FORAMEN EPIDURAL ADD-ON IMPLANT NEUROELECTRODES IMPLANT NEUROELECTRODES Implt neurostim elctr each Advance Directives Directive Yes / No Effective Date File Name No Information Encounters Encounter Description Practice Location Reason(s) For Visit Diagnoses Date Provider Providers Copied on Encounter [facility], [address] [place] [address], [id number], tel:[phone] [place] [address] No Information [facility]. [address] [place] [address], [id number], [place]. tel:[phone] Referring Provider: Celestino Souza, [address] [place], [address] . tel:[phone] [facility], [address] [place] [address], [id number], tel:[phone] [place] [address] No Information [facility]. [address] [place] [address], [id number], . tel:[phone] Referring Provider: Carlos Paige, [address], [place], [address]. tel:[phone] Family History Family Member Type Diagnosis Age At Onset No Information Payers Payer name Insurance type Covered republican ID Shoaib dominguez(sRamon Isbell [id number] Social History Type Description Quantity Date Captured Comments Sex Male Smoking Status No Information Chief Complaint And Reason For Visit No Information Reason For Referral Reason For Referral No Information History Of Present Illness Encounter Date Complaint History Of Prese nt Illness No Information Functional Status Date Functional Assessmen t No Information Instructions Date Instruction Additional Infor mation No Information Assessments Type Assessment Date No Information Patient Care Teams Name Effective Dates (start - stop) Status Members No Information
--- OUTSIDE RECORDS SUMMARY | 2024-08-17 12:22 | XMS_ITS | Clinical Summary ---
Author Organization [facility] Address [place], [place] [address] Care Team Providers Care Storage Engineer Name Role Phone Asif Andersen MD Primary Care Provider [phone] Allergies Active Allergy Reactions Criticality Noted Date [...] Date DDD (degenerative disc disease), cervical 2022 Overview (04/04/2023): March 2023: Rayus C6-7 [place] epidural steroid [...] 74 04/30/2023 12:55 PM CDT Temperature 36.3 C (97.3 F) 02/27/2018 7:40 AM CDT Respiratory Rate 18 02/27/2018 7:40 AM CDT [...] 2) 2017 COVID-19 vaccine series ( season) 2024 01/04/2022, 08/25/2021, 12/31/2020, Additional history exists Influenza for age 50-64 05/24/2024 06/13/20 22, 06/30/2021, 06/13/2020, Additional history exists Pneumococcal series for age 6-64 Aged Out No longer eligible based on patient's age to complete this topic Medical Devices Implanted Type Area Clinical Veterinarian Device Identifier Shelf Expiration Date Model / Serial / Lot Bone 30cc Allosource Chips Canclls - [id number] Implanted:Qty : 1 on 02/25/2018 by Casey Leslie MD at [facility] [employer] Lumbar Vertebrae [employer] 04/19/2022 [id number] # / / [id number] Set Screw Lmbr Ant 5.5mm Solera Break Off - [id number] Implanted:Qty : 4 on 02/25/2018 by Casey Leslie MD at [facility] Lumbar Vertebrae [employer] [facility] [id number] / / Screw Lmbr Post 6.5x45mm Solera 5.5/6 Va Cocr - [id number] Implanted:Qty : 2 on 02/25/2018 by Casey Leslie MD at [facility] Lumbar Vertebrae [employer] Sp[employer] [id number] 545# / / Screw Lmbr Post 6.5x50mm Solera 5.5/6 Va Cocr - [id number] Implanted:Qty : 2 on 02/25/2018 by Casey Leslie MD at [facility] Lumbar Vertebrae [employer] Sp[employer] [id number] 550# / / Gentry Lmbr 40x5.5mm Solera 5.5/6cvd Co Cr - [id number] Implanted:Qty : 2 on 02/25/2018 by Casey Leslie MD at [facility] Lumbar Vertebrae [employer] Spine/Ortho [id number] 40# / / Bone 15cc Allosource Crushed Canclls - [id number] Implanted:Qty : 1 on 02/25/2018 by Casey Leslie MD at [facility] Lumbar Vertebrae [employer] 10/08/2022 [id number] # / / [id number] Advance Directives * Full Code (Latest Code Status on File) Date Activated Date Inactivated Comments 02/25/2018 3:49 PM 02/27/2018 11:57 AM Care Teams Storage Engineer Relationship Specialty Start Date End Date Asif Andersen MD [id number], [place] [address] PCP - General Family Practice 10/03/17
--- OUTSIDE RECORDS SUMMARY | 2024-08-17 12:22 | XMS_ITS | Continuity of Care Document ---
Author Organization [facility] Address [address] [place] [address] Care Team Providers Care Garage Laborer Name Role Phone Osmany De Anda CRNA Unavailable Unavailable Procedures Procedure Date Percutaneous Image guided injection, dra amato, or ANESTH PERC IMG TX SP PROC Advance Directives Directive Yes / No Effective Date File Name No Information Encounters Encounter Description Practice Location Reason(s) For Visit Diagnoses Date Provider Providers Copied on Encounter [facility], [address] [place], [place], [id number], [facility] No Information 4 Adilson Ceron. [address] [place], [place], [id number] , . tel:[phone] Referring Provider: Celestino Souza, [address] [place], [address] . tel:[phone] [facility], [address], [place], [id number], [facility] No Information 1 Bobby Rubin . [address] [facility], [place], [place], [id number] , . tel:[phone] Referring Provider: Carlos Paige, [address], [place], [address]. tel:[phone] Family History Family Member Type Diagnosis Age At Onset No Information Payers Payer name Insurance type Covered green party ID Authoriza tion(s) [employer] CI [id number] Social History Type Description Quantity Date Captured [...]
== END 2024-08-17 12:18 | disposition home or self-care (01) ==
PROVIDERS: PCP Family Medicine; Visit Provider Family Medicine
DX: E78.5 Hyperlipidemia, unspecified (principal); I10 Essential (primary) hypertension; E66.9 Obesity, unspecified; F41.9 Anxiety disorder, unspecified; E78.00 Pure hypercholesterolemia, unspecified; Z12.5 Encounter for screening for malignant neoplasm of prostate
CPT/HCPCS: 80053; 80061; G0103

== ENCOUNTER 2024-11-16 07:46 | Outpatient (CLI) | payer OTHER, SELFPAY ==
--- NOTE | 2024-11-16 08:00 | CRLHL7_ITS ---
For Patients: As a result of the Cures Act, medical imaging exams and procedure reports are released immediately into your electronic medical record. You may view this report before your referring provider. If you have questions, please contact your health care provider. INDICATION: Bilateral hip pain TECHNIQUE: AP view of the pelvis and lateral projections of both hips, 4 images total COMPARISON: None FINDINGS: Mild left hip osteoarthritis. Right hip normal. No chondrocalcinosis or erosive change. Symphysis pubis and sacroiliac joints within normal limits. No fracture. IMPRESSION: Mild left hip osteoarthritis. Negative right hip and pelvis. Dictated by Eder Kline MD @ 11/16/2024 10:19:44 AM (Electronically Signed)
== END 2024-11-16 07:47 | disposition home or self-care (01) ==
LOC: RAD 07:47
PROVIDERS: PCP Family Medicine; Visit Provider Nurse Practitioner Family
DX: M25.551 Pain in right hip (principal); M16.0 Bilateral primary osteoarthritis of hip; M25.552 Pain in left hip
CPT/HCPCS: 73521

== ENCOUNTER 2024-11-23 07:08 | Outpatient (CLI) | payer OTHER, SELFPAY | END 2024-11-23 07:09 | disposition home or self-care (01) | PROVIDERS: PCP Family Medicine; Visit Provider Nurse Practitioner Family | DX: M54.50 Low back pain, unspecified (principal); M47.896 Other spondylosis, lumbar region; M51.26 Other intervertebral disc displacement, lumbar region; M54.16 Radiculopathy, lumbar region | CPT/HCPCS: 72148 ==

== ENCOUNTER 2025-04-14 07:30 | Outpatient (RCR) | payer OTHER, SELFPAY | END 2025-08-11 14:27 | disposition home or self-care (01) | PROVIDERS: PCP Family Medicine; Visit Provider Nurse Practitioner Family | DX: M54.16 Radiculopathy, lumbar region (principal); Z51.89 Encounter for other specified aftercare | CPT/HCPCS: 97110; 97162 ==

== ENCOUNTER 2025-07-16 08:02 | Outpatient (CLI) | payer OTHER, SELFPAY ==
--- NOTE | 2025-07-16 08:15 | CRLHL7_ITS ---
For Patients: As a result of the Century Cures Act, medical imaging exams and procedure reports are released immediately into your electronic medical record. You may view this report before your referring provider. If you have questions, please contact your health care provider. INDICATION: Radiculopathy. COMPARISON: 11/23/2024. Technique Sagittal T1, T2, and STIR sequences. Axial T1 and T2 weighted sequences. FINDINGS: Stable grade 1 retrolisthesis of L3 on L4 measures approximately 4 mm. Otherwise, normal alignment. No fractures. No vertebral body loss of height. Stable postop changes diskectomy interbody fusion L4-5 laminectomy and posterior fusion hardware at L4-5. Stable edema and likely granulation tissue within the posterior soft tissues operative bed. No suspicious osseous lesions. Normal conus terminates at L1. T12-L1: No spinal canal neural foraminal narrowing. L1-2: Stable disc degeneration. No narrowing of spinal canal. No neural foraminal narrowing. L2-3: No spinal canal neural foraminal narrowing. L3-4: Grade 1 retrolisthesis. Disc degeneration posted disc bulge. Mild narrowing of spinal canal. Mild narrowing of bilateral foramina. L4-5: Postoperative changes. No narrowing of the spinal canal. No neural foraminal narrowing. L5-S1: Disc degeneration. No narrowing of spinal canal. No neural foraminal narrowing. Normal visualized SI joints. Normal paraspinal soft tissues. IMPRESSION: 1. Stable grade 1 retrolisthesis of L3 on L4. Otherwise normal alignment. 2. No fractures 3. Stable postoperative changes L4-5 4. At L3-4, mild narrowing of the spinal canal and bilateral neural foramina. Dictated by Ha Iqbal MD @ 07/17/2025 5:12:42 PM (Electronically Signed)
== END 2025-07-16 08:03 | disposition home or self-care (01) ==
LOC: MRI 08:02
PROVIDERS: PCP Family Medicine; Visit Provider Family Medicine
DX: M54.10 Radiculopathy, site unspecified (principal); M51.26 Other intervertebral disc displacement, lumbar region
CPT/HCPCS: 72148

== ENCOUNTER 2025-08-20 07:44 | Outpatient (CLI) | payer OTHER, SELFPAY | END 2025-08-20 07:45 | disposition home or self-care (01) | LOC: NFLDREF 08-25 09:04 | PROVIDERS: PCP Family Medicine; Referring Provider Family Medicine; Visit Provider Family Medicine | DX: I10 Essential (primary) hypertension (principal); E78.5 Hyperlipidemia, unspecified; Z00.00 Encounter for general adult medical examination without abnormal findings; E10.9 Type 1 diabetes mellitus without complications | CPT/HCPCS: 80053; 80061; 82306; G0103 ==